=== PATIENT | female | born 1985 | race Caucasian/White ===

== ENCOUNTER → 2017-12-01 10:07 | Outpatient (CLI) | payer OTHER, SELFPAY ==
--- NOTE | 2017-12-01 | DI.US.S_ITS ---
PROCEDURE: US OB <= 14 WEEKS FETUS INDICATIONS: ABDOMINAL PAIN OUTSIDE/PRIOR DATING DATA: Last menstrual period (LMP): 10/11/17. LMP-based estimated date of delivery (ANUJA): 07/18/18. First dating scan (date and location): 12/01/17. Estimated date of delivery (ANUJA) from first dating scan: 07/19/18. TECHNIQUE: Real-time scanning was performed of the fetus and maternal pelvic organs, with image documentation. Endovaginal scanning was also performed to better visualize the fetus and maternal ovaries. COMPARISON: None. FINDINGS: Embryo: Hurricane-rump length measures 1.0 cm corresponding to 7 weeks 1 day. heart rate measured 152 beats per minute. Measurement variability in dating: +/- 4 weeks by LMP, +/- 7 days by mean sac diameter (use before 6 weeks gestation if crown-rump length not able to be measured), +/- 5 days by crown-rump length (up to 8 weeks 6 days gestation), +/- 7 days by crown-rump length (up to 13 weeks 6 days gestation). Maternal organs: Large simple maternal left ovarian cyst measuring 7.0 x 7.9 x 5.7 cm. IMPRESSION: 1. 7 week 1 day single living IUP. 2. Large simple maternal left ovarian cyst. Given the size, there is increased risk for spontaneous ovarian torsion and followup is recommended. Dictated by: Juwan PATRICK Interpreted: Rc Le MD on 12/01/2017 at 14:38 Approved by: Rc Le M.D. on 12/01/2017 at 15:20
== END ==
PROVIDERS: PCP Family Medicine; Visit Provider Family Medicine
DX: O34.81 Maternal care for other abnormalities of pelvic organs, first trimester (principal); N83.292 Other ovarian cyst, left side; Z3A.01 Less than 8 weeks gestation of pregnancy
CPT/HCPCS: 76801; 76817

== ENCOUNTER → 2018-03-10 08:12 | Outpatient (CLI) | payer OTHER, SELFPAY ==
--- NOTE | 2018-03-10 | DI.US.S_ITS ---
PROCEDURE: US OB >= 14 WEEKS FETUS INDICATIONS: SCREENING OUTSIDE/PRIOR DATING DATA: Last menstrual period (LMP): 10/11/2017. LMP-based estimated date of delivery (ANUJA): 07/18/2018. First dating scan (date and location): 12/01/2017. Estimated date of delivery (ANUJA) from first dating scan: 07/19/2018. TECHNIQUE: Real-time scanning was performed of the fetus, with image documentation and biometric measurements. Endovaginal scanning: There is a small retrochorionic fluid collection inferior to the left side of the placenta measuring 4.1 x 0.9 x 3.8 cm COMPARISON: None. FINDINGS: General: A single living intrauterine gestation is present. Presentation: Breech Placenta: Placental position is anterior, without previa. Amniotic fluid index: 18.6 cm, normal range is 5-24 cm. heart rate: 140 beats per minute. Maternal cervical canal: 3.5 cm long. Normal lower limit is 2.5 cm. biometrics: Biparietal diameter: 5.6 cm corresponding with 23 weeks and 0 days Head circumference: 20 cm corresponding with 22 weeks and 1 day Abdominal circumference: 17.2 cm corresponding with 22 weeks and 1 day Femur length: 3.8 cm corresponding with 22 weeks and 2 day Estimated gestational age from initial scan: not applicable. Composite gestational age from present scan: 21 weeks and 2 days Estimated weight and percentile: 485 g corresponding to the 89th percentile Measurement variability for biometric dating: +/- 7 days from 14 weeks to 15 weeks 6 days gestation, +/- 10 days from 16 weeks to 21 weeks 6 days gestation, +/- 2 weeks from 22 weeks to 27 weeks 6 days gestation, +/- 3 weeks for 28 weeks gestation or later. weight reference: 4500 g or EFW >90/95% is considered macrosomia or large for gestational age. EFW <10% is small for gestational age. EFW 5% or less is considered intra-uterine growth restriction. Anatomic survey: Neuro: Ventricles are non-dilated at less than 10 mm. Cisterna magna is normal at 3-11 mm. Cerebellum is normal in size and morphology. Nuchal skin fold: Normal at less than 6 mm between 14-21 weeks gestational age. Face: Nose and lips, facial profile are normal. Spine: No evidence for spina bifida. Heart: 4-chambered heart is present, with normal ventricular outflow tracts. Diaphragm: Diaphragm is intact. Stomach: Left-sided stomach is present. Kidneys: No hydronephrosis. Normal is less than 5 mm in 2nd trimester, less than 7 mm in 3rd trimester. Cord: 3-vessel cord has orthotopic insertion. Bladder: Normal in size. Extremities: All 4 extremities identified. IMPRESSION: 1. Single living intrauterine gestation with an estimated sonographic gestational age of approximately 21 weeks and 2 days. 2. Unremarkable routine anatomic survey. 3. Nonspecific, small 4.1 x 0.9 x 3.8 cm ashwin-chorionic fluid collection seen inferior to left side of the placenta which may represent a previous perigestational hemorrhage. Clinical followup as needed. Dictated by: Kamar David M.D. on 03/10/2018 at 15:27 Approved by: Kamar David M.D. on 03/10/2018 at 15:51
== END ==
PROVIDERS: PCP Family Medicine; Visit Provider Family Medicine
DX: Z36.89 Encounter for other specified antenatal screening (principal); Z3A.21 21 weeks gestation of pregnancy
CPT/HCPCS: 76811

== ENCOUNTER → 2018-03-22 15:55 | Outpatient (CLI) | payer OTHER, SELFPAY ==
--- NOTE | 2018-03-22 | DI.US.S_ITS ---
PROCEDURE: US OB LIMITED INDICATIONS: FOLLOW UP PERIGESTATIONAL HEMORRHAGE OUTSIDE/PRIOR DATING DATA: Last menstrual period (LMP): 10/11/2017. LMP-based estimated date of delivery (ANUJA): 07/18/2018. First dating scan (date and location): 12/01/2017. Estimated date of delivery (ANUJA) from first dating scan: 07/19/2018. TECHNIQUE: Real-time scanning was performed of the fetus, with image documentation and biometric measurements. Endovaginal scanning: No COMPARISON: [facility], , OB >= 14 WEEKS FETUS, 03/10/2018, 8:42. FINDINGS: General: A single living intrauterine gestation is present. Presentation: Transverse. Placenta: Placental position is anterior, without previa. Subchorionic inferior placental fluid collection again seen which appear similar to prior examination and likely represents a prominent venous ibanez measuring 4.9 x 1.4 x 3.4 cm. Amniotic fluid index: 17.8 cm, normal range is 5-24 cm. heart rate: 144 beats per minute. Maternal cervical canal: Not well-seen. Other: Not applicable. IMPRESSION: 1. Single living IUP redemonstrated and subchorionic inferior fluid collection is again noted which has an appearance suggesting probable prominent venous ibanez. Recommend clinical correlation and continued followup. Dictated by: Juwan CONN Interpreted: Melanie Wilson MD on 03/22/2018 at 16:43 Approved by: Melanie Wilson M.D. on 03/22/2018 at 21:09
== END ==
PROVIDERS: PCP Family Medicine; Visit Provider Family Medicine
DX: O46.92 Antepartum hemorrhage, unspecified, second trimester (principal); Z3A.22 22 weeks gestation of pregnancy
CPT/HCPCS: 76815

== ENCOUNTER 2018-05-10 13:00 | Observation (INO) | payer OTHER, SELFPAY | END 2018-05-10 15:30 | disposition home or self-care (01) | PROVIDERS: Admitting Provider Family Medicine; PCP Family Medicine; Visit Provider Family Medicine | DX: Z34.83 Encounter for supervision of other normal pregnancy, third trimester (principal); Z3A.30 30 weeks gestation of pregnancy | CPT/HCPCS: 59025; 96360; G0378; G0379 ==

== ENCOUNTER → 2018-06-20 14:24 | Outpatient (REF) | payer OTHER, SELFPAY | LOC: LAB 14:24 | PROVIDERS: PCP Family Medicine; Visit Provider Family Medicine | DX: Z34.80 Encounter for supervision of other normal pregnancy, unspecified trimester (principal) | CPT/HCPCS: 87081 ==

== ENCOUNTER 2018-07-11 09:50 | Observation (INO) | payer OTHER, SELFPAY ==
--- NOTE | 2018-07-11 09:55 | DI.US.S_ITS ---
PROCEDURE: US OB >= 14 WEEKS FETUS INDICATIONS: SIZE AND MARICRUZ OUTSIDE/PRIOR DATING DATA: Last menstrual period (LMP): 10/11/17. LMP-based estimated date of delivery (ANUJA): 07/18/18. First dating scan (date and location): 12/01/17. Estimated date of delivery (ANUJA) from first dating scan: 07/19/18. TECHNIQUE: Real-time scanning was performed of the fetus, with image documentation and biometric measurements. COMPARISON: [facility], OB LIMITED, 03/22/2018, 16:20. [facility] PELVIC COMPLETE, 01/24/2018, 12:47. [facility] PELVIC COMPLETE, 12/26/2017, 14:58. [facility] 14 WEEKS [facility]US, 12/01/2017, 10:37. [facility] >= 14 WEEKS FETUS, 03/10/2018, 8:42. FINDINGS: General: A single living intrauterine gestation is present. Presentation: Vertex. Placenta: Placental position is anterior, without previa. Amniotic fluid index: 16.1 cm, normal range is 5-24 cm. heart rate: 155 beats per minute. Maternal cervical canal: Not well-seen. biometrics: Biparietal diameter: 10.4 cm (out of range) Head circumference: 34.9 cm (40 weeks 4 days) Abdominal circumference: 35.8 cm (39 weeks 5 days) Femur length: 7.8 cm, (40 weeks 1 day) Estimated gestational age from initial scan: 38 weeks 6 days Composite gestational age from present scan: 40 weeks 1 day Estimated weight and percentile: 4050 g (93rd percentile) Measurement variability for biometric dating: +/- 7 days from 14 weeks to 15 weeks 6 days gestation, +/- 10 days from 16 weeks to 21 weeks 6 days gestation, +/- 2 weeks from 22 weeks to 27 weeks 6 days gestation, +/- 3 weeks for 28 weeks gestation or later. weight reference: 4500 g or EFW >90/95% is considered macrosomia or large for gestational age. EFW <10% is small for gestational age. EFW 5% or less is considered intra-uterine growth restriction. IMPRESSION: 1. Single live intrauterine is measuring slightly larger than expected based on the previous ultrasound. 2. Estimated weight is within the 93rd percentile. Please correlate clinically for possible macrosomia. Dictated by: Lowell Orantes M.D. on 07/11/2018 at 11:28 Approved by: Lowell Orantes M.D. on 07/12/2018 at 12:43
[2018-07-11 10:16] LABS: RBC Urine None Seen (0-5/HPF)
[2018-07-11 10:21] LABS: Appearance Urine UA CLEAR; Bilirubin Urine UA NEGATIVE (NEGATIVE); Color Urine UA YELLOW; Glucose Urine UA NEGATIVE (Negative); Ketones Urine UA NEGATIVE (NEGATIVE); Leukocyte Esterase Urine UA 1+ (NEGATIVE); Nitrite Urine UA NEGATIVE (Negative); Occult Blood Urine UA NEGATIVE (Negative); Protein Urine UA NEGATIVE (Negative); Urobilinogen Urine UA 0.2 E.U./dL (0.2)
[2018-07-11 10:21] LABS: Add Manual Diff / Slide Review NO; Basophils Absolute Auto 0 /uL (0-100); Basophils Percent Auto 0.5 % (0-2); Eosinophils Absolute Auto 0 /uL (0-450); Eosinophils Percent Auto 0.5 % (2-4); Hematocrit 38.6 % (36-46); Hemoglobin 13.5 g/dL (12.0-16.0); Lymphocytes Absolute Auto 800 /uL (1100-4500); Lymphocytes Percent Auto 10.8 % (25-40); Mean Corpuscular HGB Conc 35.1 % (30-36); Mean Corpuscular Hemoglobin 31.6 PG (26-34); Mean Corpuscular Volume 90.1 fL (80-100); Monocytes Absolute Auto 400 /uL (0-900); Neutrophils Absolute Auto 6000 /uL (1500-7000); Neutrophils Percent Auto 82.2 % (50-75); Platelet Count 167 X10^3/uL (150-400); Red Blood Cell Count 4.28 X10^6/uL (4.0-5.2); Red Cell Distribution Width 12.8 % (11.6-14.8); White Blood Cell Count 7.3 X10^3/uL (4.5-11.0)
[2018-07-11 10:33] LABS: Aspartate Aminotransferase 20 IU/L (14-36); Blood Urea Nitrogen 10 mg/dL (7-17); Estimated Glomerular Filt Rate > 60.0 mL/min (>60); Uric Acid 3.8 mg/dL (2.5-6.2)
[2018-07-11 10:41] LABS: Bacteria Urine Occasional (0-1); Squamous Epithelial Cell Urine 5-10 /HPF (0-5/HPF); WBC Urine 1-5/HPF (0-5/HPF)
== END 2018-07-11 12:15 | disposition home or self-care (01) ==
PROVIDERS: Admitting Provider Family Medicine; PCP Family Medicine; Visit Provider Family Medicine
DX: O24.419 Gestational diabetes mellitus in pregnancy, unspecified control (principal); Z3A.39 39 weeks gestation of pregnancy
CPT/HCPCS: 36415; 59025; 59050; 76811; 81001; 84450; 84550; 85025; G0378; G0379

== ENCOUNTER 2018-07-16 18:06 | Inpatient (IN) | payer OTHER, SELFPAY ==
[2018-07-16] MEDS: miSOPROStol 25 MCG TABLET VAG ×2 (19:30→23:33)
[2018-07-16 21:52] VITALS: BP 140/87
[2018-07-17 03:52] LABS: Add Manual Diff / Slide Review NO; Basophils Absolute Auto 100 /uL (0-100); Basophils Percent Auto 0.7 % (0-2); Eosinophils Absolute Auto 100 /uL (0-450); Eosinophils Percent Auto 1.4 % (2-4); Hematocrit 38.9 % (36-46); Hemoglobin 13.9 g/dL (12.0-16.0); Lymphocytes Absolute Auto 1200 /uL (1100-4500); Mean Corpuscular HGB Conc 35.8 % (30-36); Mean Corpuscular Hemoglobin 32.1 PG (26-34); Mean Corpuscular Volume 89.7 fL (80-100); Monocytes Absolute Auto 600 /uL (0-900); Monocytes Percent Auto 7.1 % (3-14); Neutrophils Absolute Auto 6800 /uL (1500-7000); Neutrophils Percent Auto 76.8 % (50-75); Platelet Count 190 X10^3/uL (150-400); Red Blood Cell Count 4.34 X10^6/uL (4.0-5.2); Red Cell Distribution Width 12.6 % (11.6-14.8); White Blood Cell Count 8.9 X10^3/uL (4.5-11.0)
[2018-07-17] MEDS: LACTATED RINGERS 1,000 ML 100 ML IV ×2 (04:34→06:58)
[2018-07-17] MEDS: OXYTOCIN PREMIX 30 UNIT/500 ML PLAST..BAG IV (06:38)
[2018-07-17 07:03] VITALS: BP 116/76; PULSE 83; RESP 16; TEMP 36.3
--- NOTE | 2018-07-17 08:23 | PM.OBPNLAB ---
Date/Time Date Patient Seen: 07/17/18 Time Patient Seen: 08:24 Pain Control Pain control: tolerating well and epidural Pelvic Exam Dilation (cm): 4 Effacement (%): 100 station: 0 Amniotic membrane status: Intact Contractions Contractions on admission: irregular Monitor mode: External Pitocin rate (mU/min): 4 Contraction frequency (min): 4 Contraction pattern: Irregular Contraction phase: Resting Contraction intensity: Strong/Firm Status status: Category l Heart Rate Baseline: 130 Monitor Accelerations: Present Monitor Decelerations: Absent Monitor Variability: Moderate Assessment and Plan Assessment: active labor Plan: continuous present management Comments: AROM clear continue with epidural and pitocin
[2018-07-17] MEDS: OXYTOCIN 10 UNIT/ML VIAL IM (11:15)
--- NOTE | 2018-07-17 11:49 | P.PCNOB_ITS ---
Delivery date: 07/17/18 Intrapartal events: None Cervical ripening method: per misoprostal protocol Induction method: per pitocin protocol Delivery augmentation: rupture of membranes Delivery monitor: external FHT Route of delivery: L&D Laceration Description: None Estimated blood loss (mL): 300 Anesthesia type: Epidural Complications: none Narrative: Identifyingdata: This is a pleasant 32-year-old at 39 and 6 7 weeks estimated gestational age who is brought in for cervical ripening due to elective reasons due to 's deployment. Patient also having elevated blood pressures which was thought to be related to anxiety. She did not have the normal blood pressure dropped during . Preeclamptic labs were negative. Otherwise was uncomplicated. AB-positive mom rubella immune, GBS negative, status post flu and Tdap Stage I: 6 hours and 50 minutes Patient was given Cytotec for cervical ripening x2. She had painful uterine contractions that caused cervical change and was felt to be in active labor at 3:30 a.m. on the day of delivery. She requested an epidural and completed at 5:30 a.m.. The patient was felt to be comfortable. The patient was 4-5 cm at the time that I initially checked her at 8:00 a.m. and artificial rupture membranes was performed at 8:12 a.m.. This resulted in clear and blood-tinged fluid. This was 2 hours and 55 minutes prior to delivery. Patient was noted to be complete at 10:20 a.m. and began pushing at 10:33 a.m.. External tocometer and heart monitor were used throughout stage I. Baseline heart rate was in the 130s to 140s with moderate variability and accelerations. There were ashwin ods of decreased variability but category 1 tracing throughout this stage. There were no complication shins of stage I of labor. After the epidural the uterine contractions spaced out and Pitocin was begun at approximately 6:45 a.m.. Maximum Pitocin was 8 milliunits Stage II: 34 minutes Patient began pushing and had very effective pushing. She allowed the head to sit on the perineum and effectively stretch. External tocometer heart monitor used throughout this stage showing increased in variability than prior to pushing. Showing moderate variability with variable decelerations into the 100s with pushing. Uterine contractions were every 2-4 minutes. Maximum Pitocin was at 8 milliunits. Baby was in LOUIS presentation. The head was delivered without difficulty and palpated for a cord which was not present and then anterior shoulder was delivered without difficulty and then posterior shoulder. Some difficulty getting the torso delivered. Baby was placed on mom's chest. Cord was allowed pulse a for 30 seconds and then clamped x2 and cut by father. Baby was vigorous at delivery on mom's chest. Stage III: Lasted 6 minutes Normal spontaneous vaginal delivery of an intact moderately calcified placenta with central cord insertion almost elongated placenta. No evidence of abruption or venous Baker. Three-vessel cord present. Perineum was intact as was vagina and cervix. Uterus was very deep and initially boggy so 10 milliunits of Pitocin was given IM and the remainder of the Pitocin that was titrated for induction was run in. No repairs were necessary. At the time of this dictation both mom and baby are in stable condition. Baby's weight is pending. Suspect 9 lb. Apgars 9 at 1 minute and 9 at 5 minutes Plan for aftercare: routine GBS negative AB positive, rubella immune
--- NOTE | 2018-07-17 11:49 | PM.OBHP.1 ---
OB HPI Date/Time Date of admission: 07/17/18 Date Patient Seen: 07/17/18 Time Patient Seen: 08:00 History of Present Condition Chief complaint: observation : 2 Para: 1 Estimated Date of Delivery: 07/18/18 Estimated Gestational Age (weeks): 39 6/7 Narrative: Cynthia Tristan is a 32 year old female at 39 and 6 7 weeks estimated gestational age based on an EDC of 07/18/2018 based on LMP and 1st trimester ultrasound is brought to Labor and delivery for Cytotec cervical ripening due to elective reasons due to in deployment, a suspected macrosomia and elevated blood pressure. Blood pressure was thought to be related to anxiety although her blood pressure did not decrease with . She had preeclamptic labs done on 2 separate occasions which were entirely normal. She never had significant swelling or proteinuria. She had her flu shot and tetanus shot. Indications Indication for induction OB: other History of Present care: good care Dating criteria: LMP confirmed by 1st trimester US Ultrasounds: normal 1st trimester US and normal mid trimester US Abnormal ultrasound findings: Venous lakes were found but resolved. Obstetrical complications: none Medical complications: none Preadmission Labs Blood type: AB (+) positive -: Antibody screen: negative, Cystic fibrosis screen: negative, GBS status: negative, HBsAG: negative, HIV: negative, HSV 1: negative, HSV 2: negative and RPR/VDLR: negative -: Chlamydia screen: not detected and Gonorrhea screen: not detected -: Rubella: immune HCT: 13.2 HCAB: negative PAP: Normal Integrated screen: Insurance did not cover Sequential screen: Insurance did not cover Quad screen: Normal Urine: Negative 1 hr GTT: 76 Prior (ies) History: 1. March 03, 2016 at 41 weeks gestation normal spontaneous vaginal delivery of a viable female infant weighing 7 lb 0.8 oz name [place] with epidural at [facility]. Uncomplicated and delivery. Evaluation Evaluation Laboratory results: Laboratory Tests 07/17/18 07/17/18 03:40 03:40 WBC 8.9 RBC 4.34 Hgb 13.9 Hct 38.9 MCV 89.7 MCH 32.1 MCHC 35.8 RDW 12.6 Plt Count 190 Neut % (Auto) 76.8 H Lymph % (Auto) 14.0 L [place] % (Auto) 7.1 Eos % (Auto) 1.4 L Baso % (Auto) 0.7 Neut # (Auto) 6800 Lymph # (Auto) 1200 [place] # (Auto) 600 Eos # (Auto) 100 Baso # (Auto) 100 Blood Type AB Positive Antibody Screen Negative [facility] Social History Smoking Status: Never smoker Social History Smoking Status: Never smoker Comment: Past medical history 1. Hypothyroidism Medications: vitamins Levothyroxine 50 mcg daily Site amount 25 mcg daily Allergies: No known drug allergies Past surgical history: Unremarkable Health related behavior: No smoking, no alcohol or drug use Family history: Mom with hypertension, diagnosed at age 40 Social history: The patient is and lives in [facility]. Her is in the . 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 Has a 2-year-old daughter. Meds Home Medications Medication Instructions Recorded Confirmed Type levothyroxine 50 mcg tablet 50 mcg PO DAILY 12/26/17 07/16/18 History liothyronine 25 mcg tablet 25 mcg PO DAILY 12/26/17 07/16/18 History Allergies Allergy/AdvReac Type Severity Reaction Status Date / Time No Known Drug Allergies Allergy Verified 07/16/18 21:55 Review of Systems Review of Systems Negative for any contractions. Negative for headaches or swelling. Baby has been active. Negative for any bleeding or leaking fluid. Negative for any swelling. Negative for change in metal discharge. Negative for visual changes All systems reviewed & are unremarkable except as noted in HPI and below Exam Vital Signs (past 8 hours): Afebrile, vital signs are stable HEENT: Unremarkable Neck: Supple without adenopathy or thyromegaly Chest: Clear to auscultation without wheezes rhonchi or crackles Cor: Regular rate and rhythm without any murmur Abdomen: Gravid, vertex, estimated weight approximately 9 lb. No hepatosplenomegaly. No tenderness. Extremities no edema, pulses intact, DTRs 2+ Cervical exam 4-5 cm dilated, 100% effaced, 0 station, intact bag of water A rum at 8:12 a.m. clear fluid with some blood Uterine contractions every 2-4 minutes. Some coupling. Category 1 tracing with baseline 130s to 140s with moderate variability and accelerations and no decelerations Objective Labs Result Diagrams: 07/17/18 03:40 Labs: Laboratory Results - last 24 hr 07/17/18 07/17/18 03:40 03:40 WBC 8.9 RBC 4.34 Hgb 13.9 Hct 38.9 MCV 89.7 MCH 32.1 MCHC 35.8 RDW 12.6 Plt Count 190 Neut % (Auto) 76.8 H Lymph % (Auto) 14.0 L [place] % (Auto) 7.1 Eos % (Auto) 1.4 L Baso % (Auto) 0.7 Neut # (Auto) 6800 Lymph # (Auto) 1200 [place] # (Auto) 600 Eos # (Auto) 100 Baso # (Auto) 100 Blood Type AB Positive Antibody Screen Negative Assessment and Plan Assessment and Plan Assessment and Plan narrative: 32-year-old at 39 and 6 7 weeks estimated gestational age in early active labor with epidural and reassuring heart tracing with category 1 tracing. AROM performed Continue with Pitocin Continue with epidural Expectant management AB positive, rubella immune, GBS negative
--- NOTE | 2018-07-17 12:01 | P.HPOB_ITS ---
OB HPI Date/Time Date of admission: 07/17/18 Date Patient Seen: 07/17/18 Time Patient Seen: 08:00 History of Present Condition Chief complaint: observation : 2 Para: 1 Estimated Date of Delivery: 07/18/18 Estimated Gestational Age (weeks): 39 6/7 Narrative: Cynthia Tristan is a 32 year old female at 39 and 6 7 weeks estimated gestational age based on an EDC of 07/18/2018 based on LMP and 1st trimester ultrasound is brought to Labor and delivery for Cytotec cervical ripening due to elective reasons due to in deployment, a suspected macrosomia and elevated blood pressure. Blood pressure was thought to be related to anxiety although her blood pressure did not decrease with . She had preeclamptic labs done on 2 separate occasions which were entirely normal. She never had significant swelling or proteinuria. She had her flu shot and tetanus shot. Indications Indication for induction OB: other History of Present care: good care Dating criteria: LMP confirmed by 1st trimester US Ultrasounds: normal 1st trimester US and normal mid trimester US Abnormal ultrasound findings: Venous lakes were found but resolved. Obstetrical complications: none Medical complications: none Preadmission Labs Blood type: AB (+) positive -: Antibody screen: negative, Cystic fibrosis screen: negative, GBS status: negative, HBsAG: negative, HIV: negative, HSV 1: negative, HSV 2: negative and RPR/VDLR: negative -: Chlamydia screen: not detected and Gonorrhea screen: not detected -: Rubella: immune HCT: 13.2 HCAB: negative PAP: Normal Integrated screen: Insurance did not cover Sequential screen: Insurance did not cover Quad screen: Normal Urine: Negative 1 hr GTT: 76 Prior (ies) History: 1. March 03, 2016 at 41 weeks gestation normal spontaneous vaginal delivery of a viable female infant weighing 7 lb 0.8 oz name [place] with epidural at [facility]. Uncomplicated and delivery. Evaluation Evaluation Laboratory results: Laboratory Tests 07/17/18 07/17/18 03:40 03:40 WBC 8.9 RBC 4.34 Hgb 13.9 Hct 38.9 MCV 89.7 MCH 32.1 MCHC 35.8 RDW 12.6 Plt Count 190 Neut % (Auto) 76.8 H Lymph % (Auto) 14.0 L [place] % (Auto) 7.1 Eos % (Auto) 1.4 L Baso % (Auto) 0.7 Neut # (Auto) 6800 Lymph # (Auto) 1200 [place] # (Auto) 600 Eos # (Auto) 100 Baso # (Auto) 100 Blood Type AB Positive Antibody Screen Negative [facility] Social History Smoking Status: Never smoker Social History Smoking Status: Never smoker Comment: Past medical history 1. Hypothyroidism Medications: vitamins Levothyroxine 50 mcg daily Site amount 25 mcg daily Allergies: No known drug allergies Past surgical history: Unremarkable Health related behavior: No smoking, no alcohol or drug use Family history: Mom with hypertension, diagnosed at age 40 Social history: The patient is and lives in [facility]. Her is in the . 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 Meds Home Medications Medication Instructions Recorded Confirmed Type levothyroxine 50 mcg tablet 50 mcg PO DAILY 12/26/17 07/16/18 History liothyronine 25 mcg tablet 25 mcg PO DAILY 12/26/17 07/16/18 History Allergies Allergy/AdvReac Type Severity Reaction Status Date / Time No Known Drug Allergies Allergy Verified 07/16/18 21:55 Review of Systems Review of Systems Negative for any contractions. Negative for headaches or swelling. Baby has been active. Negative for any bleeding or leaking fluid. Negative for any swelling. Negative for change in metal discharge. Negative for visual changes All systems reviewed & are unremarkable except as noted in HPI and below Exam Vital Signs (past 8 hours): Afebrile, vital signs are stable HEENT: Unremarkable Neck: Supple without adenopathy or thyromegaly Chest: Clear to auscultation without wheezes rhonchi or crackles Cor: Regular rate and rhythm without any murmur Abdomen: Gravid, vertex, estimated weight approximately 9 lb. No hepatosplenomegaly. No tenderness. Extremities no edema, pulses intact, DTRs 2+ Cervical exam 4-5 cm dilated, 100% effaced, 0 station, intact bag of water A rum at 8:12 a.m. clear fluid with some blood Uterine contractions every 2-4 minutes. Some coupling. Category 1 tracing with baseline 130s to 140s with moderate variability and accelerations and no decelerations Objective Labs Result Diagrams: 07/17/18 03:40 Labs: Laboratory Results - last 24 hr 07/17/18 07/17/18 03:40 03:40 WBC 8.9 RBC 4.34 Hgb 13.9 Hct 38.9 MCV 89.7 MCH 32.1 MCHC 35.8 RDW 12.6 Plt Count 190 Neut % (Auto) 76.8 H Lymph % (Auto) 14.0 L [place] % (Auto) 7.1 Eos % (Auto) 1.4 L Baso % (Auto) 0.7 Neut # (Auto) 6800 Lymph # (Auto) 1200 [place] # (Auto) 600 Eos # (Auto) 100 Baso # (Auto) 100 Blood Type AB Positive Antibody Screen Negative Assessment and Plan Assessment and Plan Assessment and Plan narrative: 32-year-old at 39 and 6 7 weeks estimated gestational age in early active labor with epidural and reassuring heart tracing with category 1 tracing. AROM performed Continue with Pitocin Continue with epidural Expectant management AB positive, rubella immune, GBS negative
[2018-07-17] MEDS: METHYLERGONOVINE 0.2 MG TABLET PO ×3 (12:52→21:13)
[2018-07-17] MEDS: miSOPROStol 200 MCG TABLET 800 MCG PR (14:15)
[2018-07-17] MEDS: CARBOPROST 250 MCG/ML AMPUL IM (15:29)
[2018-07-17] MEDS: IBUPROFEN 600 MG TABLET PO ×2 (17:04→21:13)
[2018-07-17 18:50] LABS: Add Manual Diff / Slide Review NO; Basophils Absolute Auto 100 /uL (0-100); Basophils Percent Auto 0.4 % (0-2); Eosinophils Absolute Auto 0 /uL (0-450); Hematocrit 29.9 % (36-46); Hemoglobin 10.3 g/dL (12.0-16.0); Lymphocytes Absolute Auto 700 /uL (1100-4500); Lymphocytes Percent Auto 4.4 % (25-40); Mean Corpuscular HGB Conc 34.6 % (30-36); Mean Corpuscular Hemoglobin 31.5 PG (26-34); Mean Corpuscular Volume 91.1 fL (80-100); Monocytes Absolute Auto 500 /uL (0-900); Neutrophils Absolute Auto 13800 /uL (1500-7000); Neutrophils Percent Auto 92.2 % (50-75); Platelet Count 165 X10^3/uL (150-400); Red Blood Cell Count 3.28 X10^6/uL (4.0-5.2); Red Cell Distribution Width 12.8 % (11.6-14.8)
[2018-07-17] MEDS: ACETAMINOPHEN 325 MG TABLET 650 MG PO (20:04)
[2018-07-18] MEDS: METHYLERGONOVINE 0.2 MG TABLET PO ×2 (01:32→05:14)
[2018-07-18] MEDS: ACETAMINOPHEN 325 MG TABLET 650 MG PO ×2 (01:32→07:54)
[2018-07-18] MEDS: IBUPROFEN 600 MG TABLET PO ×2 (05:13→12:55)
[2018-07-18] MEDS: LIOTHYRONINE 5 MCG TABLET 25 MCG PO (06:03)
[2018-07-18] MEDS: LEVOTHYROXINE 50 MCG TABLET PO ×2 (06:03→08:01)
[2018-07-18 06:53] LABS: Add Manual Diff / Slide Review NO; Basophils Absolute Auto 100 /uL (0-100); Basophils Percent Auto 0.5 % (0-2); Eosinophils Absolute Auto 100 /uL (0-450); Eosinophils Percent Auto 0.9 % (2-4); Hemoglobin 9.9 g/dL (12.0-16.0); Lymphocytes Absolute Auto 1100 /uL (1100-4500); Lymphocytes Percent Auto 10.7 % (25-40); Mean Corpuscular HGB Conc 35.3 % (30-36); Mean Corpuscular Hemoglobin 32.2 PG (26-34); Mean Corpuscular Volume 91.2 fL (80-100); Monocytes Absolute Auto 600 /uL (0-900); Monocytes Percent Auto 5.6 % (3-14); Neutrophils Absolute Auto 8600 /uL (1500-7000); Neutrophils Percent Auto 82.3 % (50-75); Platelet Count 154 X10^3/uL (150-400); Red Blood Cell Count 3.07 X10^6/uL (4.0-5.2); Red Cell Distribution Width 12.8 % (11.6-14.8); White Blood Cell Count 10.4 X10^3/uL (4.5-11.0)
[2018-07-18] MEDS: METOCLOPRAMIDE HCL 10 MG TABLET PO ×2 (07:55→11:54)
[2018-07-18] MEDS: DOCUSATE 250 MG CAPSULE PO (11:55)
--- NOTE | 2018-07-18 13:32 | P.DS_ITS ---
History of Present Illness Chief complaint: LABOR & DELIVERY Discharge Providers Date of admission: 07/16/18 18:06 Discharge Date: 07/18/18 Primary care physician: Julia Mishra MD Consults: 07/17/18 11:29 Consult to Registered Nurse Cardiac Telemetry Routine Comment: Discharge provider: Julia Mishra MD Objective Labs Result Diagrams: 07/18/18 06:35 Labs: Laboratory Results - last 24 hr 07/17/18 07/17/18 07/18/18 03:40 18:38 06:35 WBC 15.0 H D 10.4 RBC 3.28 L 3.07 L Hgb 10.3 L 9.9 L Hct 29.9 L 28.0 L MCV 91.1 91.2 MCH 31.5 32.2 MCHC 34.6 35.3 RDW 12.8 12.8 Plt Count 165 154 Neut % (Auto) 92.2 H 82.3 H Lymph % (Auto) 4.4 L 10.7 L [place] % (Auto) 3.0 5.6 Eos % (Auto) 0.0 L 0.9 L Baso % (Auto) 0.4 0.5 Neut # (Auto) 81395 H 8600 H Lymph # (Auto) 700 L 1100 [place] # (Auto) 500 600 Eos # (Auto) 0 100 Baso # (Auto) 100 100 Blood Type AB Positive Antibody Screen Negative Crossmatch See Detail Discharge Plan Discharge Plan Patient Disposition: Home Discharge Med Rec/Prescriptions Prescriptions: New ibuprofen 600 mg Tablet 600 mg PO Q6HR PRN (Reason: Pain, Mild (1-3)) Qty: 60 RF: 0 metoclopramide HCl 10 mg Tablet 10 mg PO ACHS Qty: 20 RF: 0 Continued liothyronine [Cytomel] 25 mcg tablet 25 mcg PO DAILY RF: 0 levothyroxine 50 mcg tablet 50 mcg PO DAILY RF: 0 Follow up/Referrals: Julia Mishra MD [Primary Care Provider] - Provider Discharge Instructions Diet: Diet as Tolerated Activity: pelvic rest no heavy lifting Discharge Data Primary Care Provider: Julia Mishra Attending Provider: Julia Mishra Admit Date/Time: 07/16/18 18:06
--- NOTE | 2018-07-18 13:32 | PM.OBDS.1 ---
Discharge Providers Date of admission: 07/16/18 18:06 Discharge Date: 07/18/18 Primary care physician: Julia Mishra MD Consults: 07/17/18 11:29 Consult to Gift Shop Clerk Routine Comment: Discharge provider: Julia Mishra MD Summary Date Patient Seen: 07/18/18 Time Patient Seen: 13:33 Procedures: 1. Normal spontaneous vaginal delivery 2. Epidural Hospital Course: Patient admitted to the hospital for cervical ripening and received 2 Cytotec and went into active labor. She received an epidural at 5:30 a.m. on date of delivery and had rapid progression and normal spontaneous vaginal delivery on 07/17/2018. Uncomplicated. She did developed hemorrhage. She had large amounts of blood clots and intermittent boggy uterus. Her uterus was quickly contract down and then to continue Reyataz she received 10 mg use IM with Pitocin and then Pitocin was run and intravenously. She then had 1-1/2 hours after delivery had Methergine orally given. And Cytotec 800 mcg per rectum. She then continued to have bleeding and an in out catheterization obtained 250 cc of urine. She then had Hemabate which causes vomiting. Finely approximately 6 hours after delivery her bleeding dissipated. There were no vaginal or cervical lacerations. There were no perineal lacerations. There was no concern for retained placenta. Amniotic membranes came out intact the placenta came out intact and fully visualize it. Patient recovered quickly. She maintained a good blood pressure but at 1 point her heart rate did go up into the 150s. She denies any significant bleeding today. She is having very minimal blood. She is up ambulating without difficulty. She has showered. She is feeding the baby without difficulty. She is urinating and stooling without difficulty. Her pain is well controlled with ibuprofen. Her hemoglobin dropped to 9.9 this morning 10.3 yesterday evening. She maintained normal blood pressure throughout this in the 1 teens to 120s and continues with normal blood pressure and vital signs today. Peripartum Data Delivery Method: Natural Vaginal Laceration description: None complications: none Time Spent with Patient Total time spent providing and/or coordinating discharge services: 30 minutes Objective Labs Result Diagrams: 07/18/18 06:35 Labs: Laboratory Results - last 24 hr 05/20/19 05/20/19 05/21/19 03:40 18:38 06:35 WBC 15.0 H D 10.4 RBC 3.28 L 3.07 L Hgb 10.3 L 9.9 L Hct 29.9 L 28.0 L MCV 91.1 91.2 MCH 31.5 32.2 MCHC 34.6 35.3 RDW 12.8 12.8 Plt Count 165 154 Neut % (Auto) 92.2 H 82.3 H Lymph % (Auto) 4.4 L 10.7 L [place] % (Auto) 3.0 5.6 Eos % (Auto) 0.0 L 0.9 L Baso % (Auto) 0.4 0.5 Neut # (Auto) 56803 H 8600 H Lymph # (Auto) 700 L 1100 [place] # (Auto) 500 600 Eos # (Auto) 0 100 Baso # (Auto) 100 100 Blood Type AB Positive Antibody Screen Negative Crossmatch See Detail Exam Narrative Exam Narrative: Afebrile, vital signs are stable Color is good. She is alert and oriented x3 Neck is supple without adenopathy Chest clear to auscultation without wheezes rhonchi or crackles Cor: Regular rate and rhythm without murmur Abdomen: Positive bowel sounds, soft, nontender, uterus is firm and nontender and well below the umbilicus and not displaced Extremities: Trace edema. DTRs 2+ bilaterally at the patella Perineum with moderate swelling Discharge Plan Discharge Plan Patient Disposition: Home Discharge Med Rec/Prescriptions Prescriptions: New ibuprofen 600 mg Tablet 600 mg PO Q6HR PRN (Reason: Pain, Mild (1-3)) Qty: 60 RF: 0 metoclopramide HCl 10 mg Tablet 10 mg PO ACHS Qty: 20 RF: 0 Continued liothyronine [Cytomel] 25 mcg tablet 25 mcg PO DAILY RF: 0 levothyroxine 50 mcg tablet 50 mcg PO DAILY RF: 0 Follow up/Referrals: Julia Mishra MD [Primary Care Provider] - Discharge Data Primary Care Provider: Julia Mishra Attending Provider: Julia Mishra Admit Date/Time: 07/16/18 18:06
--- NOTE | 2018-07-18 13:38 | P.DS_ITS ---
Discharge Providers Date of admission: 07/16/18 18:06 Discharge Date: 07/18/18 Primary care physician: Julia Mishra MD Consults: 07/17/18 11:29 Consult to Hydraulic Miner Blasting Routine Comment: Discharge provider: Julia Mishra MD Summary Date Patient Seen: 07/18/18 Time Patient Seen: 13:33 Procedures: 1. Normal spontaneous vaginal delivery 2. Epidural Hospital Course: Patient admitted to the hospital for cervical ripening and received 2 Cytotec and went into active labor. She received an epidural at 5:30 a.m. on date of delivery and had rapid progression and normal spontaneous vaginal delivery on 07/17/2018. Uncomplicated. She did developed hemorrhage. She had large amounts of blood clots and intermittent boggy uterus. Her uterus was quickly contract down and then to continue Reyataz she received 10 mg use IM with Pitocin and then Pitocin was run and intravenously. She then had 1-1/2 hours after delivery had Methergine orally given. And Cytotec 800 mcg per r ectum. She then continued to have bleeding and an in out catheterization obtained 250 cc of urine. She then had Hemabate which causes vomiting. Finely approximately 6 hours after delivery her bleeding dissipated. There were no vaginal or cervical lacerations. There were no perineal lacerations. There was no concern for retained placenta. Amniotic membranes came out intact the placenta came out intact and fully visualize it. Patient recovered quickly. She maintained a good blood pressure but at 1 point her heart rate did go up into the 150s. She denies any significant bleeding today. She is having very minimal blood. She is up ambulating without difficulty. She has showered. She is feeding the baby without difficulty. She is urinating and stooling without difficulty. Her pain is well controlled with ibuprofen. Her hemoglobin dropped to 9.9 this morning 10.3 yesterday evening. She maintained normal blood pressure throughout this in the 1 teens to 120s and continues with normal blood pressure and vital signs today. Peripartum Data Infant Delivery Method: Natural Vaginal Laceration description: None complications: none Time Spent with Patient Total time spent providing and/or coordinating discharge services: 30 minutes Objective Labs Result Diagrams: 07/18/18 06:35 Labs: Laboratory Results - last 24 hr 07/17/18 07/17/18 07/18/18 03:40 18:38 06:35 WBC 15.0 H D 10.4 RBC 3.28 L 3.07 L Hgb 10.3 L 9.9 L Hct 29.9 L 28.0 L MCV 91.1 91.2 MCH 31.5 32.2 MCHC 34.6 35.3 RDW 12.8 12.8 Plt Count 165 154 Neut % (Auto) 92.2 H 82.3 H Lymph % (Auto) 4.4 L 10.7 L [place] % (Auto) 3.0 5.6 Eos % (Auto) 0.0 L 0.9 L Baso % (Auto) 0.4 0.5 Neut # (Auto) 97463 H 8600 H Lymph # (Auto) 700 L 1100 [place] # (Auto) 500 600 Eos # (Auto) 0 100 Baso # (Auto) 100 100 Blood Type AB Positive Antibody Screen Negative Crossmatch See Detail Exam Narrative Exam Narrative: Afebrile, vital signs are stable Color is good. She is alert and oriented x3 Neck is supple without adenopathy Chest clear to auscultation without wheezes rhonchi or crackles Cor: Regular rate and rhythm without murmur Abdomen: Positive bowel sounds, soft, nontender, uterus is firm and nontender and well below the umbilicus and not displaced Extremities: Trace edema. DTRs 2+ bilaterally at the patella Perineum with moderate swelling Discharge Plan Discharge Plan Patient Disposition: Home Discharge Med Rec/Prescriptions Prescriptions: New ibuprofen 600 mg Tablet 600 mg PO Q6HR PRN (Reason: Pain, Mild (1-3)) Qty: 60 RF: 0 metoclopramide HCl 10 mg Tablet 10 mg PO ACHS Qty: 20 RF: 0 Continued liothyronine [Cytomel] 25 mcg tablet 25 mcg PO DAILY RF: 0 levothyroxine 50 mcg tablet 50 mcg PO DAILY RF: 0 Follow up/Referrals: Julia Mishra MD [Primary Care Provider] - Discharge Data Primary Care Provider: Julia Mishra Attending Provider: Julia Mishra Admit Date/Time: 07/16/18 18:06
[2018-07-18] MEDS: MEASLES,MUMPS,RUBELLA VACC/PF 0.5 ML VIAL SUBCUT (14:12)
== END 2018-07-18 15:05 | disposition home or self-care (01) | DRG 807 ==
PROVIDERS: Admitting Provider Family Medicine; PCP Family Medicine; Visit Provider Family Medicine
DX: O13.4 Gestational [pregnancy-induced] hypertension without significant proteinuria, complicating childbirth (principal); Z37.0 Single live birth; O72.1 Other immediate postpartum hemorrhage; Z3A.39 39 weeks gestation of pregnancy
CPT/HCPCS: 01967; 36415; 59050; 59200; 85025; 86850; 86900; 86901; G0379; J2590; S0191

== ENCOUNTER 2018-11-24 08:15 | Outpatient (RCR) | payer OTHER, SELFPAY ==
--- NOTE | 2018-10-05 16:10 | PT.OIE ---
Current Diagnoses Separation of muscle (nontraumatic), other site (10/05/18) Stress incontinence (female) (male) (10/05/18) Provider Visit Care Team Role Provider Type Julia Mishra MD Attending Provider Physician Primary Care Provider Specialty: Family Practice Address: [address] [place] [address], [id number] Email: Physical Therapy Initial Evaluation PT-OP-A Visit Information Start: 10/05/18 08:13 Freq: Status: Active Protocol: Document 10/05/18 09:00 AMB (Rec: 10/05/18 15:58 AMB [email or web address]) Out-Patient Physical Therapy Visit Information Visit Information Visit Type Initial Evaluation Visit Start Time 09:00 Visit Stop Time 09:45 Total Visit Minutes 45 Visit Number 1 PT-OP-B Current Condition Start: 10/05/18 08:13 Freq: Status: Active Protocol: Document 10/05/18 09:00 AMB (Rec: 10/05/18 15:58 AMB [email or web address]) Current Condition History of Current Condition Onset Date June 2018 Current Complaints stress urinary incontinence and diastasis recti History of Current Condition Cynthia has 2 children both delivered vaginally without tearing. She noticed leaking with running after the of her first child and ran 2 marathons using pads due to the leaking. The leaking worsened after the second delivery which was about 3 months ago. She did have diastasis recti after the first , which resolved on its own before second . Treatment Goals Patient/Caregiver Goals run marathons again without leaking, get diastasis recti to close Prior Functional Status Baseline Function- ADL's Independent Baseline Function- Mobility Independent Current Functional Impairments (Reported) Functional Limitations- ADL's leaking with exercise, intercourse, urgency Personal Factors Other Personal Factors That May Effect hypothyroid Therapy/Recovery PT-OP-C Subjective Start: 10/05/18 08:13 Freq: Status: Active Protocol: Document 10/05/18 09:00 AMB (Rec: 10/05/18 15:58 AMB [email or web address]) Patient Questionnaires Pelvic Pain and Urgency/Frequency Patient Symptom Scale Pelvic Pain Score 3 PT-OP-I Pelvic Floor Start: 10/05/18 09:51 Freq: Status: Active Protocol: Document 10/05/18 09:00 AMB (Rec: 10/05/18 15:58 AMB [email or web address]) Pelvic Floor Assessment Urine Leakage Size Large Leakage Cause Cough Exercise Lifting Sneeze Urge Voiding Frequency 6 Nocturia 1 Urine Pad Type Maxi Pad Bowel Other Bowel Symptoms difficulty delaying need to defecate Pelvic Clock Pelvic Clock Other tightness at perineum Prolapse Cystocele Grade 1 Perineal Descent Resting Absent Bearing Present SEMG (uV) Baseline 2.3 Quick Contraction 14.2 Stability of Hold Fair SEMG Stability of Rest Good Contraction Ability Voluntary Contraction Weak Voluntary Relaxation Weak Manual Muscle Testing Left 0 Manual Muscle Testing Right 0 Manual Muscle Testing Anterior 0 Manual Muscle Testing Posterior 1 Comments Pelvic Floor Comments 1 finger width seperation above and below umbilicus PT-OP-T Assessment and Plan Start: 10/05/18 08:13 Freq: Status: Active Protocol: Document 10/05/18 09:00 AMB (Rec: 10/05/18 16:10 AMB [email or web address]) Physical Therapy Assessment Rehab Potential Rehabilitation Potential Good Evaluation Complexity Number of Personal Factors/Comorbidities 1-2 Number of Body Systems Impaired 1-2 Clinical Presentation at Evaluation Stable Impairments Impairments Functional Activities Strength Goals Two Impairment abdominal stability Short Term Goal (STG) Cynthia will perform a crunch without coning to show improved core stability. STG Duration 4 weeks Combination Window Installer Goal (LTG) Cynthia will have a half finger width diastasis or less. LTG Duration 10 weeks One Impairment continence Short Term Goal (STG) Cynthia will perform a pelvic floor contraction for 10 seconds in standing without compensation. STG Duration 5 weeks Combination Window Installer Goal (LTG) Cynthia will run for 10 minutes without leaking. LTG Duration 10 weeks Assessment Summary Assessment Cynthia attends physical therapy with diastasis recti and stress urinary incontinence that limit her abilty to return to physical activities. She will benefit from both pelvic floor strengthening and then transversus abdominus strengthening for safe return to her previously high level of function. Physical Therapy Plan Frequency and Duration Frequency of Treatment 1x/Week Duration of Treatment 10 weeks Plan of Care Start Date 10/05/18 Plan of Care End Date 12/07/18 Therapeutic Interventions Therapeutic Interventions Aquatic Therapy Gait Training Home Exercise Program Manual Therapy Neuromuscular Re-education Self-Care/Home Management Therapeutic Activities Therapeutic Exercises Modalities Biofeedback Electric Stimulation Next Visit Focus/Plan Next Note Type Treatment Note Next Visit Plan Progress with sEMG and gentle TA stabilization. Pt feels better able to contract PF in seated.
--- NOTE | 2018-10-05 16:10 | PT.OPPOC ---
Current Diagnoses Separation of muscle (nontraumatic), other site (10/05/18) Stress incontinence (female) (male) (10/05/18) Provider Visit Care Team Role Provider Type Julia Mishra MD Attending Provider Physician Primary Care Provider Specialty: Family Practice Address: [address] [place] [address], [id number] Email: Plan Of Care PT-OP-T Assessment and Plan Start: 10/05/18 08:13 Freq: Status: Active Protocol: Document 10/05/18 09:00 AMB (Rec: 10/05/18 16:10 AMB [email or web address]) Physical Therapy Assessment Rehab Potential Rehabilitation Potential Good Evaluation Complexity Number of Personal Factors/Comorbidities 1-2 Number of Body Systems Impaired 1-2 Clinical Presentation at Evaluation Stable Impairments Impairments Functional Activities Strength Goals Two Impairment abdominal stability Short Term Goal (STG) Cynthia will perform a crunch without coning to show improved core stability. STG Duration 4 weeks [facility] Goal (LTG) Cynthia will have a half finger width diastasis or less. LTG Duration 10 weeks One Impairment continence Short Term Goal (STG) Cynthia will perform a pelvic floor contraction for 10 seconds in standing without compensation. STG Duration 5 weeks Aircraft Structural Fitter Goal (LTG) Cynthia will run for 10 minutes without leaking. LTG Duration 10 weeks Assessment Summary Assessment Cynthia attends physical therapy with diastasis recti and stress urinary incontinence that limit her abilty to return to physical activities. She will benefit from both pelvic floor strengthening and then transversus abdominus strengthening for safe return to her previously high level of function. Physical Therapy Plan Frequency and Duration Frequency of Treatment 1x/Week Duration of Treatment 10 weeks Plan of Care Start Date 10/05/18 Plan of Care End Date 12/07/18 Therapeutic Interventions Therapeutic Interventions Aquatic Therapy Gait Training Home Exercise Program Manual Therapy Neuromuscular Re-education Self-Care/Home Management Therapeutic Activities Therapeutic Exercises Modalities Biofeedback Electric Stimulation Next Visit Focus/Plan Next Note Type Treatment Note Next Visit Plan Progress with sEMG and gentle TA stabilization. Pt feels better able to contract PF in seated. Plan of Care Dates Plan of Care Start Date 10/05/18 Plan of Care End Date 12/07/18 Please Sign and Return: I have reviewed this Plan of Care and certify that the skilled therapy services above are required to meet the patient?s needs. Physician Signature Date Printed Name and Credentials Clinical Instructor Signature Printed Name and Credentials
--- NOTE | 2018-10-09 15:54 | PT.OTN ---
Current Diagnoses Separation of muscle (nontraumatic), other site (10/09/18) Stress incontinence (female) (male) (10/09/18) Physical Therapy Treatment Note PT-OP-A Visit Information Start: 10/05/18 08:13 Freq: Status: Active Protocol: Document 10/09/18 09:45 AMB (Rec: 10/09/18 16:07 AMB [email or web address]) Out-Patient Physical Therapy Visit Information Visit Information Visit Type Treatment Note Visit Start Time 09:45 Visit Stop Time 10:30 Total Visit Minutes 45 Visit Number 2 PT-OP-B Current Condition Start: 10/05/18 08:13 Freq: Status: Active Protocol: Document 10/05/18 09:00 AMB (Rec: 10/05/18 15:58 AMB [email or web address]) Current Condition History of Current Condition Onset Date June 2018 Current Complaints stress urinary incontinence and diastasis recti History of Current Condition Cynthia has 2 children both delivered vaginally without tearing. She noticed leaking with running after the of her first child and ran 2 marathons using pads due to the leaking. The leaking worsened after the second delivery which was about 3 months ago. She did have diastasis recti after the first , which resolved on its own before second . Treatment Goals Patient/Caregiver Goals run marathons again without leaking, get diastasis recti to close Prior Functional Status Baseline Function- ADL's Independent Baseline Function- Mobility Independent Current Functional Impairments (Reported) Functional Limitations- ADL's leaking with exercise, intercourse, urgency Personal Factors Other Personal Factors That May Effect hypothyroid Therapy/Recovery PT-OP-C Subjective Start: 10/05/18 08:13 Freq: Status: Active Protocol: Document 10/09/18 09:45 AMB (Rec: 10/09/18 16:08 AMB [email or web address]) OP-PT Subjective Patient Comments Patient Comments Pt is reporting better able to contract pelvic floor, hasn't tried running, thinking of using stationary bike. PT-OP-I Pelvic Floor Start: 10/05/18 09:51 Freq: Status: Active Protocol: Document 10/05/18 09:00 AMB (Rec: 10/05/18 15:58 AMB [email or web address]) Pelvic Floor Assessment Urine Leakage Size Large Leakage Cause Cough Exercise Lifting Sneeze Urge Voiding Frequency 6 Nocturia 1 Urine Pad Type Maxi Pad Bowel Other Bowel Symptoms difficulty delaying need to defecate Pelvic Clock Pelvic Clock Other tightness at perineum Prolapse Cystocele Grade 1 Perineal Descent Resting Absent Bearing Present SEMG (uV) Baseline 2.3 Quick Contraction 14.2 Stability of Hold Fair SEMG Stability of Rest Good Contraction Ability Voluntary Contraction Weak Voluntary Relaxation Weak Manual Muscle Testing Left 0 Manual Muscle Testing Right 0 Manual Muscle Testing Anterior 0 Manual Muscle Testing Posterior 1 Comments Pelvic Floor Comments 1 finger width seperation above and below umbilicus PT-OP-Q Treatments Start: 10/05/18 08:13 Freq: Status: Active Protocol: Document 10/09/18 09:45 AMB (Rec: 10/12/18 15:54 AMB [email or web address]) Therapeutic Exercises Supine Exercises 2 Supine Exercise Name supine april Comments wiht pelvic floor and TrA 1 Supine Exercise Name roll in roll out Resistance #2 tband Comments with gentle TrA Sitting Exercises 1 Sitting Exercise Name quick flicks and long holds Other Exercises 1 Other Exercise Name quadruped pelvic floor contract Comments challenging Neuro Re-Education Treatment Other Activities 1 Details sEMG Comments quick flicks and long holds in hooklying PT-OP-T Assessment and Plan Start: 10/05/18 08:13 Freq: Status: Active Protocol: Document 10/09/18 09:45 AMB (Rec: 10/09/18 16:07 AMB [email or web address]) Physical Therapy Assessment Assessment Summary Assessment Quadruped was difficult to contract pelvic floor, but hooklying and seated work well . Pt given ok to do squats, lunges, biking, but avoid sit ups, running, planks for now. Physical Therapy Plan Next Visit Focus/Plan Next Note Type Treatment Note Next Visit Plan Progress with sEMG and gentle TA stabilization.
--- NOTE | 2018-10-17 16:40 | PT.OTN ---
Current Diagnoses Separation of muscle (nontraumatic), other site (10/17/18) Stress incontinence (female) (male) (10/17/18) Physical Therapy Treatment Note PT-OP-A Visit Information Start: 10/05/18 08:13 Freq: Status: Active Protocol: Document 10/17/18 09:45 AMB (Rec: 10/17/18 10:38 AMB [id number]) Out-Patient Physical Therapy Visit Information Visit Information Visit Type Treatment Note Visit Start Time 09:50 Visit Stop Time 10:30 Total Visit Minutes 40 Visit Number 3 PT-OP-B Current Condition Start: 10/05/18 08:13 Freq: Status: Active Protocol: Document 10/05/18 09:00 AMB (Rec: 10/05/18 15:58 AMB [email or web address]) Current Condition History of Current Condition Onset Date June 2018 Current Complaints stress urinary incontinence and diastasis recti History of Current Condition Cynthia has 2 children both delivered vaginally without tearing. She noticed leaking with running after the of her first child and ran 2 marathons using pads due to the leaking. The leaking worsened after the second delivery which was about 3 months ago. She did have diastasis recti after the first , which resolved on its own before second . Treatment Goals Patient/Caregiver Goals run marathons again without leaking, get diastasis recti to close Prior Functional Status Baseline Function- ADL's Independent Baseline Function- Mobility Independent Current Functional Impairments (Reported) Functional Limitations- ADL's leaking with exercise, intercourse, urgency Personal Factors Other Personal Factors That May Effect hypothyroid Therapy/Recovery PT-OP-C Subjective Start: 10/05/18 08:13 Freq: Status: Active Protocol: Document 10/17/18 09:45 AMB (Rec: 10/17/18 10:38 AMB [id number]) OP-PT Subjective Patient Comments Patient Comments Pt hiked up [place] and did not leak. PT-OP-I Pelvic Floor Start: 10/05/18 09:51 Freq: Status: Active Protocol: Document 10/05/18 09:00 AMB (Rec: 10/05/18 15:58 AMB [email or web address]) Pelvic Floor Assessment Urine Leakage Size Large Leakage Cause Cough Exercise Lifting Sneeze Urge Voiding Frequency 6 Nocturia 1 Urine Pad Type Maxi Pad Bowel Other Bowel Symptoms difficulty delaying need to defecate Pelvic Clock Pelvic Clock Other tightness at perineum Prolapse Cystocele Grade 1 Perineal Descent Resting Absent Bearing Present SEMG (uV) Baseline 2.3 Quick Contraction 14.2 Stability of Hold Fair SEMG Stability of Rest Good Contraction Ability Voluntary Contraction Weak Voluntary Relaxation Weak Manual Muscle Testing Left 0 Manual Muscle Testing Right 0 Manual Muscle Testing Anterior 0 Manual Muscle Testing Posterior 1 Comments Pelvic Floor Comments 1 finger width seperation above and below umbilicus PT-OP-Q Treatments Start: 10/05/18 08:13 Freq: Status: Active Protocol: Document 10/17/18 09:45 AMB (Rec: 10/17/18 16:40 AMB [email or web address]) Therapeutic Exercises Supine Exercises 2 Supine Exercise Name supine april Comments wiht pelvic floor and TrA 1 Supine Exercise Name roll in roll out Resistance #2 tband Comments with gentle TrA Sitting Exercises 1 Sitting Exercise Name quick flicks and long holds Reps/Minutes with TrA Standing Exercises 2 Standing Exercise Name standing long holds with TrA 1 Standing Exercise Name mini squat Comments with pelvic floor, challenging PT-OP-T Assessment and Plan Start: 10/05/18 08:13 Freq: Status: Active Protocol: Document 10/17/18 09:45 AMB (Rec: 10/17/18 16:40 AMB [email or web address]) Physical Therapy Plan Next Visit Focus/Plan Next Note Type Treatment Note Next Visit Plan Progress with sEMG and gentle TA stabilization.
--- NOTE | 2018-10-24 16:16 | PT.OTN ---
Current Diagnoses Separation of muscle (nontraumatic), other site (10/24/18) Stress incontinence (female) (male) (10/24/18) Physical Therapy Treatment Note PT-OP-A Visit Information Start: 10/05/18 08:13 Freq: Status: Active Protocol: Document 10/24/18 10:00 AMB (Rec: 10/24/18 10:24 AMB [id number]) Out-Patient Physical Therapy Visit Information Visit Information Visit Type Treatment Note Visit Start Time 09:50 Visit Stop Time 10:30 Total Visit Minutes 40 Visit Number 4 PT-OP-B Current Condition Start: 10/05/18 08:13 Freq: Status: Active Protocol: Document 10/05/18 09:00 AMB (Rec: 10/05/18 15:58 AMB [email or web address]) Current Condition History of Current Condition Onset Date June 2018 Current Complaints stress urinary incontinence and diastasis recti History of Current Condition Cynthia has 2 children both delivered vaginally without tearing. She noticed leaking with running after the of her first child and ran 2 marathons using pads due to the leaking. The leaking worsened after the second delivery which was about 3 months ago. She did have diastasis recti after the first , which resolved on its own before second . Treatment Goals Patient/Caregiver Goals run marathons again without leaking, get diastasis recti to close Prior Functional Status Baseline Function- ADL's Independent Baseline Function- Mobility Independent Current Functional Impairments (Reported) Functional Limitations- ADL's leaking with exercise, intercourse, urgency Personal Factors Other Personal Factors That May Effect hypothyroid Therapy/Recovery PT-OP-C Subjective Start: 10/05/18 08:13 Freq: Status: Active Protocol: Document 10/24/18 09:45 AMB (Rec: 10/25/18 08:15 AMB [email or web address]) OP-PT Subjective Patient Comments Patient Comments Didn't leak with one sneeze, but did leak with another this week. PT-OP-I Pelvic Floor Start: 10/05/18 09:51 Freq: Status: Active Protocol: Document 10/05/18 09:00 AMB (Rec: 10/05/18 15:58 AMB [email or web address]) Pelvic Floor Assessment Urine Leakage Size Large Leakage Cause Cough,Exercise,Lifting,Sneeze, Urge Voiding Frequency 6 Nocturia 1 Urine Pad Type Maxi Pad Bowel Other Bowel Symptoms difficulty delaying need to defecate Pelvic Clock Pelvic Clock Other tightness at perineum Prolapse Cystocele Grade 1 Perineal Descent Resting Absent Bearing Present SEMG (uV) Baseline 2.3 Quick Contraction 14.2 Stability of Hold Fair SEMG Stability of Rest Good Contraction Ability Voluntary Contraction Weak Voluntary Relaxation Weak Manual Muscle Testing Left 0 Manual Muscle Testing Right 0 Manual Muscle Testing Anterior 0 Manual Muscle Testing Posterior 1 Comments Pelvic Floor Comments 1 finger width seperation above and below umbilicus PT-OP-Q Treatments Start: 10/05/18 08:13 Freq: Status: Active Protocol: Document 10/24/18 09:45 AMB (Rec: 10/25/18 16:16 AMB [email or web address]) Therapeutic Exercises Supine Exercises 3 Supine Exercise Name pelvic floor contract with heel slide Reps/Minutes x10 2 Supine Exercise Name supine april Comments wiht pelvic floor and TrA 1 Supine Exercise Name roll in roll out Resistance #2 tband Comments with gentle TrA Sitting Exercises 2 Sitting Exercise Name on therapy ball Reps/Minutes 2x10 ea Comments LAQ, TKE Standing Exercises 2 Standing Exercise Name standing long holds with TrA 1 Standing Exercise Name mini squat Comments with pelvic floor, challenging Other Exercises 1 Other Exercise Name quadruped pelvic floor contract Comments challenging PT-OP-T Assessment and Plan Start: 10/05/18 08:13 Freq: Status: Active Protocol: Document 10/24/18 09:45 AMB (Rec: 10/25/18 08:15 AMB [email or web address]) Physical Therapy Assessment Assessment Summary Assessment Cynthia feels like she improving a little bit, but pelvic floor fatigues quickly and this is frustrating for her. Physical Therapy Plan Next Visit Focus/Plan Next Note Type Treatment Note Next Visit Plan Progress with sEMG and gentle TA stabilization.
--- NOTE | 2018-11-24 15:56 | PT.OTN ---
Current Diagnoses Separation of muscle (nontraumatic), other site (11/24/18) Stress incontinence (female) (male) (11/24/18) Physical Therapy Treatment Note PT-OP-A Visit Information Start: 10/05/18 08:13 Freq: Status: Active Protocol: Document 11/24/18 08:15 AMB (Rec: 11/27/18 07:19 AMB [email or web address]) Out-Patient Physical Therapy Visit Information Visit Information Visit Type Discharge Summary Visit Start Time 08:15 Visit Stop Time 09:00 Total Visit Minutes 45 Visit Number 5 PT-OP-B Current Condition Start: 10/05/18 08:13 Freq: Status: Active Protocol: Document 10/05/18 09:00 AMB (Rec: 10/05/18 15:58 AMB [email or web address]) Current Condition History of Current Condition Onset Date June 2018 Current Complaints stress urinary incontinence and diastasis recti History of Current Condition Cynthia has 2 children both delivered vaginally without tearing. She noticed leaking with running after the of her first child and ran 2 marathons using pads due to the leaking. The leaking worsened after the second delivery which was about 3 months ago. She did have diastasis recti after the first , which resolved on its own before second . Treatment Goals Patient/Caregiver Goals run marathons again without leaking, get diastasis recti to close Prior Functional Status Baseline Function- ADL's Independent Baseline Function- Mobility Independent Current Functional Impairments (Reported) Functional Limitations- ADL's leaking with exercise, intercourse, urgency Personal Factors Other Personal Factors That May Effect hypothyroid Therapy/Recovery PT-OP-C Subjective Start: 10/05/18 08:13 Freq: Status: Active Protocol: Document 11/24/18 08:15 AMB (Rec: 11/27/18 07:19 AMB [email or web address]) OP-PT Subjective Patient Comments Patient Comments Went on a two mile run and didn't have a leak. PT-OP-I Pelvic Floor Start: 10/05/18 09:51 Freq: Status: Active Protocol: Document 10/05/18 09:00 AMB (Rec: 10/05/18 15:58 AMB [email or web address]) Pelvic Floor Assessment Urine Leakage Size Large Leakage Cause Cough,Exercise,Lifting,Sneeze, Urge Voiding Frequency 6 Nocturia 1 Urine Pad Type Maxi Pad Bowel Other Bowel Symptoms difficulty delaying need to defecate Pelvic Clock Pelvic Clock Other tightness at perineum Prolapse Cystocele Grade 1 Perineal Descent Resting Absent Bearing Present SEMG (uV) Baseline 2.3 Quick Contraction 14.2 Stability of Hold Fair SEMG Stability of Rest Good Contraction Ability Voluntary Contraction Weak Voluntary Relaxation Weak Manual Muscle Testing Left 0 Manual Muscle Testing Right 0 Manual Muscle Testing Anterior 0 Manual Muscle Testing Posterior 1 Comments Pelvic Floor Comments 1 finger width seperation above and below umbilicus PT-OP-Q Treatments Start: 10/05/18 08:13 Freq: Status: Active Protocol: Document 11/24/18 08:15 AMB (Rec: 11/27/18 15:53 AMB [email or web address]) Therapeutic Exercises Supine Exercises 4 Supine Exercise Name small crunch Comments cones just slightly 2 Supine Exercise Name supine march Comments wiht pelvic floor and TrA Standing Exercises 2 Standing Exercise Name standing long holds with TrA Other Exercises 1 Other Exercise Name quadruped pelvic floor contract, with TrA Comments added UE flexion PT-OP-T Assessment and Plan Start: 10/05/18 08:13 Freq: Status: Active Protocol: Document 11/24/18 08:24 AMB (Rec: 11/24/18 09:07 AMB [id number]) Physical Therapy Assessment Goals Two Impairment abdominal stability Short Term Goal (STG) Cynthia will perform a crunch without coning to show improved core stability. STG Duration NOT MET, but progress made [place] Goal (LTG) Cynthia will have a half finger width diastasis or less. LTG Duration MET One Impairment continence Short Term Goal (STG) Cynthia will perform a pelvic floor contraction for 10 seconds in standing without compensation. STG Duration MET Halfway Goal (LTG) Cynthia will run for 10 minutes without leaking. LTG Duration MET Assessment Summary Assessment Cynthia feels ready to do her exercises at home. Her pelvic floor has improved so that she can go on short flat runs without leaking, and she has to the tools to continue to work on her diastasis recti independently. She does continue to have a small diastasis, and sprint work or plyometrics may continue to cause leaking, so she will need to continue to progress her exercises independently. Physical Therapy Plan Discharge Physical Therapy Discharge Reasons Goals Met
== END 2018-12-07 13:40 | disposition home or self-care (01) ==
LOC: PHYS 08:15
PROVIDERS: PCP Family Medicine; Visit Provider Family Medicine
DX: M62.08 Separation of muscle (nontraumatic), other site (principal); N39.3 Stress incontinence (female) (male)
CPT/HCPCS: 97110; 97112; 97161

== ENCOUNTER → 2020-09-29 16:37 | Outpatient (CLI) | payer OTHER, SELFPAY ==
[2020-09-29 18:53] LABS: HCG Quantitative /Beta subunit 2344.7 mIU/mL
== END ==
PROVIDERS: PCP Family Medicine; Referring Provider Family Medicine; Visit Provider Family Medicine
DX: O20.0 Threatened abortion (principal)
CPT/HCPCS: 36415; 84702

== ENCOUNTER → 2020-10-02 07:18 | Outpatient (CLI) | payer OTHER, SELFPAY ==
[2020-10-02 08:55] LABS: HCG Quantitative /Beta subunit 5069.3 mIU/mL
== END ==
PROVIDERS: PCP Family Medicine; Referring Provider Family Medicine; Visit Provider Family Medicine
DX: O20.0 Threatened abortion (principal)
CPT/HCPCS: 36415; 84702

== ENCOUNTER → 2020-10-17 09:34 | Outpatient (CLI) | payer OTHER, SELFPAY ==
--- NOTE | 2020-10-17 | DI.US.S_ITS ---
PROCEDURE: US OB <= 14 WEEKS FETUS INDICATIONS: SIZE AND DATES, THREATENED OUTSIDE/PRIOR DATING DATA: Last menstrual period (LMP): 08/24/2020 LMP-based estimated date of delivery (ANUJA): 05/31/2021 First dating scan (date and location): 10/17/2020. Estimated date of delivery (ANUJA) from first dating scan: 05/31/2021. TECHNIQUE: Real-time scanning was performed of the fetus and maternal pelvic organs, with image documentation. Endovaginal scanning was also performed to better visualize the fetus and maternal ovaries. COMPARISON: [facility], OB <= 14 WEEKS FETUS, 12/01/2017, 10:37. FINDINGS: Embryo: [place]-rump length measures 15 mm corresponding to 7 weeks 5 days. Heart rate: 163 beats per minute Small perigestational sac bleed site measuring up to 1.4 cm. There is an adjacent anechoic fluid collection measuring roughly 2.7 x 1.4 cm and no pole or yolk sac is seen. Measurement variability in dating: +/- 4 weeks by LMP, +/- 7 days by mean sac diameter (use before 6 weeks gestation if crown-rump length not able to be measured), +/- 5 days by crown-rump length (up to 8 weeks 6 days gestation), +/- 7 days by crown-rump length (up to 13 weeks 6 days gestation). Maternal organs: Ovaries within normal limits, with right corpus luteal cyst . IMPRESSION: 7 weeks 5 days single living IUP. Small perigestational sac bleed site. Small fluid collection adjacent to the gestational sac measuring up to 2.7 cm of unclear etiology. Attention on follow-up recommended. Dictated by: Juwan Moreno [facility] Interpreted: Rc Le MD on 10/17/2020 at 13:03 Transcribed by: AUDREY on 10/17/2020 at 13:06 Approved by: Rc Le M.D. on 10/17/2020 at 15:10
== END ==
PROVIDERS: PCP Family Medicine; Referring Provider Family Medicine; Visit Provider Family Medicine
DX: Z36.87 Encounter for antenatal screening for uncertain dates (principal); O20.0 Threatened abortion; Z3A.01 Less than 8 weeks gestation of pregnancy
CPT/HCPCS: 76801; 76817

== ENCOUNTER → 2020-10-22 12:09 | Outpatient (CLI) | payer OTHER, SELFPAY ==
--- NOTE | 2020-10-22 | DI.US.S_ITS ---
PROCEDURE: US OB LIMITED INDICATIONS: CONTINUED BLEEDING OUTSIDE/PRIOR DATING DATA: Last menstrual period (LMP): 08/24/20. LMP-based estimated date of delivery (ANUJA): 05/31/21 . First dating scan (date and location): 10/17/20 . Estimated date of delivery (ANUJA) from first dating scan: 05/31/21 . TECHNIQUE: Real-time scanning was performed of the fetus, with image documentation. Endovaginal scanning: Not performed COMPARISON: [facility], US OB LIMITED, 03/22/2018, 16:20. [facility], [facility], 02/05/2016, 16:34. FINDINGS: Placenta: Placental position is not yet established Amniotic fluid appearance: Normal. heart rate: 171 beats per minute. Estimated gestational age from initial scan: 8 weeks 3 days.. Note: Adjacent to the viable intrauterine gestation is a suspected additional amniotic sac, without visualized internal pole but debris within. Probable involuting twin gestation demise. Adjacent to the amniotic sac is a 1.6 x 2.3 x 2.5 cm irregular fluid collection consistent with subchorionic hemorrhage that is slightly enlarged. IMPRESSION: Presumed single twin gestation demise with involuting gestational sac, and with a small adjacent subchorionic hemorrhage. Currently the viable gestation shows normal cardiac activity. Dictated by: Rc Le M.D. on 10/22/2020 at 15:52 Approved by: Rc Le M.D. on 10/22/2020 at 15:57
== END ==
PROVIDERS: PCP Family Medicine; Referring Provider Family Medicine; Visit Provider Family Medicine
DX: O20.9 Hemorrhage in early pregnancy, unspecified (principal); Z3A.08 8 weeks gestation of pregnancy
CPT/HCPCS: 76815; 76817

== ENCOUNTER → 2020-11-06 07:56 | Outpatient (CLI) | payer OTHER, SELFPAY ==
--- NOTE | 2020-11-06 | DI.US.S_ITS ---
PROCEDURE: US OB <= 14 WEEKS FETUS INDICATIONS: FOLLOW-UP SUBCHORIONIC HEMORRHAGE OUTSIDE/PRIOR DATING DATA: Last menstrual period (LMP): 08/24/2020 LMP-based estimated date of delivery (ANUJA): 06/10/2021 First dating scan (date and location): 10/17/2020 Estimated date of delivery (ANUJA) from first dating scan: 05/31/2021 TECHNIQUE: Real-time scanning was performed of the fetus and maternal pelvic organs, with image documentation. Endovaginal scanning was also performed to better visualize the fetus and maternal ovaries. COMPARISON: [facility], OB <= 14 WEEKS FETUS, 10/17/2020, 9:53. FINDINGS: Embryo: Single intrauterine gestational sac is seen with fetus and cardiac activity detected. [place]-rump length measures 4.2 cm. Estimated gestational age based on current study is 11 weeks, 0 day. Estimated gestational age based on previous study is 10 weeks, 4 days. Previously described possible 2nd gestational sac with demise twin is no longer seen. Heart rate: 163 beats per minute. No perigestational hemorrhage is seen. Measurement variability in dating: +/- 4 weeks by LMP, +/- 7 days by mean sac diameter (use before 6 weeks gestation if crown-rump length not able to be measured), +/- 5 days by crown-rump length (up to 8 weeks 6 days gestation), +/- 7 days by crown-rump length (up to 13 weeks 6 days gestation). Maternal organs: Ovaries are not well seen on the current study. IMPRESSION: 1. Single live intrauterine is seen on the current study with heart rate measures 163 beats per minute. Estimated gestational age based on current study is 11 weeks. This is consistent with normal growth. 2. There is no evidence of a 2nd gestational sac on the current study. No evidence of perigestational hemorrhage. Dictated by: Andres Manuel M.D. on 11/06/2020 at 10:22 Approved by: Andres Manuel M.D. on 11/06/2020 at 10:25
== END ==
PROVIDERS: PCP Family Medicine; Referring Provider Family Medicine; Visit Provider Family Medicine
DX: O20.8 Other hemorrhage in early pregnancy (principal); Z3A.11 11 weeks gestation of pregnancy
CPT/HCPCS: 76801; 76817

== ENCOUNTER 2020-11-26 19:20 | Emergency (ER) | payer OTHER, SELFPAY ==
[2020-11-26 19:31] VITALS: BP 158/93; PULSE 93; RESP 14; TEMP 36.9; O2SAT 99
--- NOTE | 2020-11-26 19:31 | DI.US.S_ITS ---
PROCEDURE: US OB LIMITED INDICATIONS: BLEEDING OUTSIDE/PRIOR DATING DATA: Last menstrual period (LMP): 08/24/2020. LMP-based estimated date of delivery (ANUJA): 05/31/21 . First dating scan (date and location): 10/17/2020 . Estimated date of delivery (ANUJA) from first dating scan: 05/31/2021 . TECHNIQUE: Real-time scanning was performed of the fetus, with image documentation. COMPARISON: [facility], OB <= 14 WEEKS FETUS, 10/17/2020, 9:53. [facility], OB LIMITED, 10/22/2020, 12:42. FINDINGS: A single living intrauterine gestation is present. Presentation: Early. Placenta: A complete placenta previa is noted. There is a hypoechoic heterogeneous region along the placenta measuring approximately 6.1 x 4.9 x 2.0 cm likely representing a subchorionic hematoma which appears slightly increased in prominence compared to the prior study. Amniotic fluid: Appears grossly within normal limits. heart rate: 149 beats per minute. Maternal cervical canal: Not well seen. Biometry: BPD: 2.5 cm, 14 weeks 2 days HC: 9.3 cm, 14 weeks 1 day AC: 7.7 cm 14 weeks 1 day FL: 1.3 cm, 13 weeks 5 days Estimated gestational age from initial scan: 13 weeks 3 days. Estimated gestational age on current scan: 14 weeks 1 day IMPRESSION: 1. Single living intrauterine demonstrating appropriate interval growth with composite gestational age of 14 weeks 1 day. 2. Small hypoechoic heterogeneous region along the placenta likely representing a subchorionic hematoma. This appears increased in prominence compared to the prior study. Placental abruption is less likely. No history of trauma per Dr. Batista. 3. Complete placenta previa noted likely due to early gestational age. Recommend attention on follow-up. Dictated by: Georgi Pardo M.D. on 11/26/2020 at 22:08 Approved by: Georgi Pardo M.D. on 11/26/2020 at 22:18
--- NOTE | 2020-11-26 19:41 | ED_ITS ---
HPI - General Adult General Chief complaint: Vaginal Bleeding Stated complaint: 13 1/2 week preg urogen bleeding, gushing blood Time Seen by Provider: 11/26/20 19:24 Source: patient Mode of arrival: Ambulatory History of Present Illness HPI narrative: Patient is a at approximately 13 and half weeks to is here for evaluation of vaginal bleeding. She states that this was a planned . Had no medications to aid in getting . Has seen OB in this up to this point. Her prior to sent it in spontaneous uncomplicated vaginal deliveries. She states that this has been complicated by the fact that early on she had an ultrasound which showed a twin gestation. Subsequent ultrasound shows that she lost 1 of the twins. She was at her normal state health until a couple hours prior to coming here to the emergency department where she had a sudden onset of vaginal bleeding and also lower abdominal cramping. Is taking Zofran for nausea. Has had some constipation. Contacted her Ob any individual on-call advised that she come to the emergency department for evaluation. Related Data Home Medications Medication Instructions Recorded Confirmed levothyroxine 50 mcg tablet 50 mcg PO DAILY 12/26/17 07/16/18 liothyronine 25 mcg tablet 25 mcg PO DAILY 12/26/17 07/16/18 (Cytomel) Previous Rx's Medication Instructions Recorded ibuprofen 600 mg tablet 600 mg PO Q6HR PRN #60 tab 07/18/18 metoclopramide HCl 10 mg tablet 10 mg PO ACHS #20 tab 07/18/18 amoxicillin 875 mg-potassium 1 tab PO BID #14 tab 05/07/19 clavulanate 125 mg tablet Allergies Allergy/AdvReac Type Severity Reaction Status Date / Time No Known Drug Allergies Allergy Verified 11/26/20 19:31 Review of Systems Constitutional Constitutional: Reports system reviewed and no additional complaints, except as documented Cardiovascular Cardiovascular: Reports system reviewed and no additional complaints, except as documented Respiratory Respiratory: Reports system reviewed and no additional complaints, except as documented Gastrointestinal Gastrointestinal: Reports as per HPI and Reports system reviewed and no additional complaints, except as documented Genitourinary Genitourinary: Reports system reviewed and no additional complaints, except as documented and Reports as per HPI Integumentary/Breasts Skin/Breast: Reports system reviewed and no additional complaints, except as documented Neurologic Neurologic: Reports system reviewed and no additional complaints, except as documented Hematologic/Lymphatic On Anticoagulants: No Patient History Medical History Anxiety Hypothyroid Social History Smoking Status: Never smoker Smoking Status: Never smoker alcohol intake frequency: holidays/special occasions only Substance Use Type: does not use Exam Initial Vital Signs Initial Vital Signs: Vital Signs Temperature 98.5 F 11/26/20 19:31 Pulse Rate 93 H 11/26/20 19:31 Respiratory Rate 14 11/26/20 19:31 Blood Pressure 158/93 H 11/26/20 19:31 Pulse Oximetry 99 11/26/20 19:31 Const General: cooperative and comfortable HENMT Head: normal to inspection and normocephalic Resp Effort & Inspection: normal respiratory effort Auscultation: clear to auscultation bilaterally Cardio Rate: regular rate Rhythm: regular rhythm GI Inspection: normal to inspection Palpation: soft and No tender Skin General: no rashes or lesions noted Neuro General: patient alert, patient awake and moves all extremities Extrem General: normal to inspection and capillary refill normal Psych Appearance: grossly normal and well kempt Course Orders Ordered: ED Orders 11/26/20 19:31 US OB limited Stat 11/26/20 19:50 Complete Blood Count AUTO DIFF Stat Comprehensive Metabolic Panel Stat HCG Quantitative /Beta subunit Stat Thyroid Stimulating Hormone Stat Type and Screen Stat 11/26/20 20:15 Urinalysis and Microscopic Stat Discontinued Medications Ondansetron HCl (Ondansetron 4 Mg/2 Ml Inj) 4 mg IV NOW ONE Stop: 11/26/20 21:04 Last Admin: 11/26/20 21:08 Dose: 4 mg Documented by: ROSA ISELA Vital Signs Vital signs: Vital Signs - 8 hr 11/26/20 19:31 11/26/20 21:12 Temperature 98.5 F Pulse Rate 93 H 88 Respiratory Rate 14 18 Blood Pressure 158/93 H 138/86 Pulse Oximetry 99 99 Medical Decision Making Medical Records Medical records reviewed: Yes I reviewed the patient's medical records. Lab Data Lab results reviewed: Yes I reviewed the patient's lab results. Result diagrams: 11/26/20 19:50 11/26/20 19:50 Labs: Lab Results 09/29/21 09/29/21 09/29/21 Range/Units 19:50 19:50 19:50 WBC 8.8 (4.5-11.0) X10^3/uL RBC 4.36 (4.0-5.2) X10^6/uL Hgb 13.5 (12.0-16.0) g/dL Hct 38.9 (36-46) % MCV 89.2 (80-100) fL MCH 30.9 (26-34) PG MCHC 34.6 (30-36) % RDW 12.8 (11.6-14.8) % Plt Count 266 (150-400) X10^3/uL Neut % (Auto) 75.8 H (50-75) % Lymph % (Auto) 16.8 L (25-40) % [place] % (Auto) 5.6 (3-14) % Eos % (Auto) 1.2 L (2-4) % Baso % (Auto) 0.6 (0-2) % Neut # (Auto) 6600 (8704-1248) /uL Lymph # (Auto) 1500 (5068-3469) /uL [place] # (Auto) 500 (0-900) /uL Eos # (Auto) 100 (0-450) /uL Baso # (Auto) 100 (0-100) /uL Sodium 136 L (137-145) mmol/L Potassium 3.6 (3.4-5.1) mmol/L Chloride 102 (98-107) mmol/L Carbon Dioxide 28 (22-32) mmol/L BUN 13 (7-17) mg/dL Creatinine 0.54 (0.52-1.04) mg/dL Estimated GFR > 60.0 (>60) mL/min BUN/Creatinine Ratio 24.1 H (6-22) Glucose 91 (70-100) mg/dL Calcium 9.5 (8.4-10.2) mg/dL Total Bilirubin 0.2 (0.2-1.3) mg/dL AST 23 (14-36) IU/L ALT 11 (<35) IU/L Alkaline Phosphatase 46 (38-126) U/L Total Protein 7.6 (6.3-8.2) g/dL Albumin 4.3 (3.5-5.0) g/dL Globulin 3.3 (1.7-4.1) g/dL Albumin/Globulin Ratio 1.3 (1.0-2.8) TSH 3.33 (0.47-4.68) uIU/mL HCG, Quant 40801 mIU/mL Urine Color Urine Appearance Urine pH (4.5-8.0) Ur Specific [place] (1.000-1.035) Urine Protein (Negative) Urine Glucose (UA) (Negative) g/dL Urine Ketones (NEGATIVE) Urine Occult Blood (Negative) Urine Nitrate (Negative) Urine Bilirubin (NEGATIVE) Urine Urobilinogen (0.2) E.U./dL Ur Leukocyte Esterase (NEGATIVE) Urine RBC (0-5/HPF) Urine WBC (0-5/HPF) Ur Squamous Epith Cells (0-5/HPF) Urine Bacteria (None) Ur Culture Indicated? Blood Type Antibody Screen 11/26/20 11/26/20 Range/Units 19:50 20:15 WBC (4.5-11.0) X10^3/uL RBC (4.0-5.2) X10^6/uL Hgb (12.0-16.0) g/dL Hct (36-46) % MCV (80-100) fL MCH (26-34) PG MCHC (30-36) % RDW (11.6-14.8) % Plt Count (150-400) X10^3/uL Neut % (Auto) (50-75) % Lymph % (Auto) (25-40) % [place] % (Auto) (3-14) % Eos % (Auto) (2-4) % Baso % (Auto) (0-2) % Neut # (Auto) (3254-0728) /uL Lymph # (Auto) (1643-7173) /uL [place] # (Auto) (0-900) /uL Eos # (Auto) (0-450) /uL Baso # (Auto) (0-100) /uL Sodium (137-145) mmol/L Potassium (3.4-5.1) mmol/L Chloride (98-107) mmol/L Carbon Dioxide (22-32) mmol/L BUN (7-17) mg/dL Creatinine (0.52-1.04) mg/dL Estimated GFR (>60) mL/min BUN/Creatinine Ratio (6-22) Glucose (70-100) mg/dL Calcium (8.4-10.2) mg/dL Total Bilirubin (0.2-1.3) mg/dL AST (14-36) IU/L ALT (<35) IU/L Alkaline Phosphatase (38-126) U/L Total Protein (6.3-8.2) g/dL Albumin (3.5-5.0) g/dL Globulin (1.7-4.1) g/dL Albumin/Globulin Ratio (1.0-2.8) TSH (0.47-4.68) uIU/mL HCG, Quant mIU/mL Urine Color Yellow Urine Appearance Clear Urine pH 7.0 (4.5-8.0) Ur Specific [place] 1.010 (1.000-1.035) Urine Protein Negative (Negative) Urine Glucose (UA) Negative (Negative) g/dL Urine Ketones Negative (NEGATIVE) Urine Occult Blood 2+ H (Negative) Urine Nitrate Negative (Negative) Urine Bilirubin Negative (NEGATIVE) Urine Urobilinogen 0.2 (0.2) E.U./dL Ur Leukocyte Esterase Negative (NEGATIVE) Urine RBC 5-10/hpf H (0-5/HPF) Urine WBC 0-1/hpf (0-5/HPF) Ur Squamous Epith Cells 0-1 /hpf (0-5/HPF) Urine Bacteria None seen (None) Ur Culture Indicated? Cult not indicated Blood Type AB Positive Antibody Screen Negative Imaging Data US - OB: Radiologist's Impression: [address] [id number] ReportSigned Patient: Cynthia Tristan MMR#: [id number]: [id number]:[id number]/Sex: 35 / FDate of Service: 11/26/20Loc: EDAccession Number: [id number] Procedure: US OB limited Ordering Provider: Abel Batista D.O. PROCEDURE: US OB LIMITED INDICATIONS: BLEEDING OUTSIDE/PRIOR DATING DATA: Last menstrual period (LMP): 08/24/2020. LMP-based estimated date of delivery (ANUJA): 05/31/21 . First dating scan (date and location): 10/17/2020 . Estimated date of delivery (ANUJA) from first dating scan: 05/31/2021 . TECHNIQUE: Real-time scanning was performed of the fetus, with image documentation. COMPARISON: [facility], , OB <= 14 WEEKS FETUS, 10/17/2020, 9:53. [facility], OB LIMITED, 10/22/2020, 12:42. FINDINGS: A single living intrauterine gestation is present. Presentation: Early. Placenta: A complete placenta previa is noted. There is a hypoechoic heterogeneous region along the placenta measuring approximately 6.1 x 4.9 x 2.0 cm likely representing a subchorionic hematoma which appears slightly increased in prominence compared to the prior study. Amniotic fluid: Appears grossly within normal limits. heart rate: 149 beats per minute. Maternal cervical canal: Not well seen. Biometry: BPD: 2.5 cm, 14 weeks 2 days HC: 9.3 cm, 14 weeks 1 day AC: 7.7 cm 14 weeks 1 day FL: 1.3 cm, 13 weeks 5 days Estimated gestational age from initial scan: 13 weeks 3 days. Estimated gestational age on current scan: 14 weeks 1 day IMPRESSION: 1. Single living intrauterine demonstrating appropriate interval growth with composite gestational age of 14 weeks 1 day. 2. Small hypoechoic heterogeneous region along the placenta likely representing a subchorionic hematoma. This appears increased in prominence compared to the prior study. Placental abruption is less likely. No history of trauma per Dr. Batista. 3. Complete placenta previa noted likely due to early gestational age. Recommend attention on follow-up. Dictated by: Georgi aPrdo M.D. on 11/26/2020 at 22:08 Approved by: Georgi Pardo M.D. on 11/26/2020 at 22:18 Discharge Plan Departure Patient Disposition: Home Clinical Impression: Threatened miscarriage, Placenta previa Instructions: Threatened Miscarriage Activity Restrictions/Additional Instructions: I recommend that tomorrow you contact your OB provider for a follow-up. She should be able to see all of the workup that we did this evening. I also recom mend pelvic rest until you see your OB provider. Continue all of your medications as directed. Return to the emergency department for any new or worsening symptoms like we discussed. Prescriptions: No Action amoxicillin-pot clavulanate 875-125 mg tablet 1 tab PO BID Qty: 14 RF: 0 liothyronine [Cytomel] 25 mcg tablet 25 mcg PO DAILY RF: 0 levothyroxine 50 mcg tablet 50 mcg PO DAILY RF: 0 ibuprofen 600 mg Tablet 600 mg PO Q6HR PRN (Reason: Pain, Mild (1-3)) Qty: 60 RF: 0 metoclopramide HCl 10 mg Tablet 10 mg PO ACHS Qty: 20 RF: 0 Referrals: Julia Mishra MD [Primary Care Provider] -
--- NOTE | 2020-11-26 19:58 | PC.NURSE ---
20 gauge iv inserted and labs drawn.
[2020-11-26 20:01] LABS: Add Manual Diff / Slide Review NO; Basophils Absolute Auto 100 /uL (0-100); Basophils Percent Auto 0.6 % (0-2); Eosinophils Absolute Auto 100 /uL (0-450); Eosinophils Percent Auto 1.2 % (2-4); Hematocrit 38.9 % (36-46); Hemoglobin 13.5 g/dL (12.0-16.0); Lymphocytes Absolute Auto 1500 /uL (1100-4500); Lymphocytes Percent Auto 16.8 % (25-40); Mean Corpuscular HGB Conc 34.6 % (30-36); Mean Corpuscular Hemoglobin 30.9 PG (26-34); Mean Corpuscular Volume 89.2 fL (80-100); Monocytes Absolute Auto 500 /uL (0-900); Monocytes Percent Auto 5.6 % (3-14); Neutrophils Absolute Auto 6600 /uL (1500-7000); Neutrophils Percent Auto 75.8 % (50-75); Platelet Count 266 X10^3/uL (150-400); Red Blood Cell Count 4.36 X10^6/uL (4.0-5.2); Red Cell Distribution Width 12.8 % (11.6-14.8); White Blood Cell Count 8.8 X10^3/uL (4.5-11.0)
[2020-11-26 20:14] LABS: Alanine Aminotransferase 11 IU/L (<35); Albumin 4.3 g/dL (3.5-5.0); Albumin Globulin Ratio 1.3 (1.0-2.8); Alkaline Phosphatase 46 U/L (38-126); Aspartate Aminotransferase 23 IU/L (14-36); BUN Creatinine Ratio 24.1 (6-22); Bilirubin Total 0.2 mg/dL (0.2-1.3); Blood Urea Nitrogen 13 mg/dL (7-17); Calcium 9.5 mg/dL (8.4-10.2); Carbon Dioxide 28 mmol/L (22-32); Chloride 102 mmol/L (98-107); Estimated Glomerular Filt Rate > 60.0 mL/min (>60); Globulin 3.3 g/dL (1.7-4.1); Glucose 91 mg/dL (70-100); HEMOLYSIS < 15 (0-50); Potassium 3.6 mmol/L (3.4-5.1); Sodium 136 mmol/L (137-145); Total Protein 7.6 g/dL (6.3-8.2)
[2020-11-26 20:25] LABS: Appearance Urine UA CLEAR; Bilirubin Urine UA NEGATIVE (NEGATIVE); Color Urine UA YELLOW; Glucose Urine UA NEGATIVE (Negative); Ketones Urine UA NEGATIVE (NEGATIVE); Leukocyte Esterase Urine UA NEGATIVE (NEGATIVE); Nitrite Urine UA NEGATIVE (Negative); Occult Blood Urine UA 2+ (Negative); Protein Urine UA NEGATIVE (Negative); Urobilinogen Urine UA 0.2 E.U./dL (0.2)
[2020-11-26 20:32] LABS: Bacteria Urine None Seen; Culture Indicated Urine Cult Not Indicated; RBC Urine 5-10/HPF (0-5/HPF); Squamous Epithelial Cell Urine 0-1 /HPF (0-5/HPF); WBC Urine 0-1/HPF (0-5/HPF)
[2020-11-26 20:44] LABS: Thyroid Stimulating Hormone 3.33 uIU/mL (0.47-4.68)
[2020-11-26 20:54] LABS: HCG Quantitative /Beta subunit 59794 mIU/mL
[2020-11-26] MEDS: ONDANSETRON 4 MG/2 ML INJ IV (21:08)
[2020-11-26 21:12] VITALS: BP 138/86; PULSE 88; RESP 18; O2SAT 99
[2020-11-26 22:35] VITALS: BP 135/90; PULSE 82; RESP 18; O2SAT 99
== END 2020-11-26 22:36 | disposition home or self-care (01) ==
PROVIDERS: Emergency Provider Emergency Medicine; PCP Family Medicine
DX: O20.0 Threatened abortion (principal); O44.01 Complete placenta previa NOS or without hemorrhage, first trimester; K59.00 Constipation, unspecified; Z3A.13 13 weeks gestation of pregnancy
CPT/HCPCS: 76815; 80053; 81001; 84443; 84702; 85025; 86850; 86900; 86901; 96374; 99284; J2405

== ENCOUNTER → 2021-01-12 11:27 | Outpatient (CLI) | payer OTHER, SELFPAY ==
[2021-01-12 15:43] LABS: COVID19 -Nasal RAPID Negative (Negative)
== END ==
PROVIDERS: PCP Family Medicine; Referring Provider Physician Assistant; Visit Provider Physician Assistant
DX: Z01.812 Encounter for preprocedural laboratory examination (principal); Z20.822 Contact with and (suspected) exposure to COVID-19
CPT/HCPCS: 87635

== ENCOUNTER → 2021-01-13 11:27 | Outpatient (CLI) | payer OTHER, SELFPAY ==
[2021-01-16 20:09] LABS: AFP Value 66.7 ng/mL (.); Gest Age on Col Date 20.3 weeks (.); Gestational Age EDD (.); Insulin Dep Diabetes No (.); OSBR Risk 1IN 7366 (.); Results Report (.); Test Results *Screen Negative* (.)
== END ==
PROVIDERS: PCP Family Medicine; Referring Provider Obstetrics & Gynecology; Visit Provider Obstetrics & Gynecology
DX: Z34.82 Encounter for supervision of other normal pregnancy, second trimester (principal); Z3A.20 20 weeks gestation of pregnancy
CPT/HCPCS: 36415; 82105

== ENCOUNTER → 2021-03-02 08:31 | Outpatient (CLI) | payer OTHER, SELFPAY ==
[2021-03-02 11:38] LABS: Hematocrit 36.7 % (36-46); Hemoglobin 12.9 g/dL (12.0-16.0)
[2021-03-02 12:09] LABS: GTT (PREG) 1 Hour PP 50gm Dose 55 mg/dL (76-139)
[2021-03-02 12:19] LABS: Free T4, Direct Thyroxine 0.55 ng/dL (0.78-2.19)
[2021-03-02 12:33] LABS: Thyroid Stimulating Hormone 0.708 uIU/mL (0.47-4.68)
== END ==
PROVIDERS: PCP Family Medicine; Referring Provider Obstetrics & Gynecology; Visit Provider Obstetrics & Gynecology
DX: O99.280 Endocrine, nutritional and metabolic diseases complicating pregnancy, unspecified trimester (principal); Z3A.25 25 weeks gestation of pregnancy; E03.9 Hypothyroidism, unspecified
CPT/HCPCS: 36415; 82950; 84439; 84443; 85014; 85018

== ENCOUNTER → 2021-04-20 16:01 | Outpatient (CLI) | payer OTHER, SELFPAY ==
[2021-04-22 13:11] LABS: Parvovirus B19 IgG 6.8 index (0.0-0.8); Parvovirus B19 IgM 0.1 index (0.0-0.8)
== END ==
PROVIDERS: PCP Family Medicine; Referring Provider Obstetrics & Gynecology; Visit Provider Obstetrics & Gynecology
DX: B08.3 Erythema infectiosum [fifth disease] (principal)
CPT/HCPCS: 36415; 86747

== ENCOUNTER → 2021-05-13 09:49 | Outpatient (CLI) | payer OTHER, SELFPAY ==
[2021-05-14 08:06] LABS: Strep Grp B PCR NEG for Grp B Strep
== END ==
PROVIDERS: PCP Family Medicine; Visit Provider Obstetrics & Gynecology
DX: Z34.83 Encounter for supervision of other normal pregnancy, third trimester (principal); Z3A.37 37 weeks gestation of pregnancy
CPT/HCPCS: 87653

== ENCOUNTER 2021-05-27 09:20 | Inpatient (IN) | payer OTHER, SELFPAY ==
[2021-05-27 10:24] LABS: Add Manual Diff / Slide Review NO; Basophils Absolute Auto 0 /uL (0-100); Basophils Percent Auto 0.2 % (0-2); Eosinophils Absolute Auto 0 /uL (0-450); Eosinophils Percent Auto 0.6 % (2-4); Hematocrit 40.4 % (36-46); Hemoglobin 14.1 g/dL (12.0-16.0); Lymphocytes Absolute Auto 800 /uL (1100-4500); Mean Corpuscular Hemoglobin 31.4 PG (26-34); Mean Corpuscular Volume 89.7 fL (80-100); Monocytes Absolute Auto 400 /uL (0-900); Neutrophils Absolute Auto 7300 /uL (1500-7000); Neutrophils Percent Auto 85.2 % (50-75); Platelet Count 192 X10^3/uL (150-400); Red Blood Cell Count 4.51 X10^6/uL (4.0-5.2); Red Cell Distribution Width 12.7 % (11.6-14.8); White Blood Cell Count 8.6 X10^3/uL (4.5-11.0)
[2021-05-27] MEDS: LACTATED RINGERS 1,000 ML 100 ML IV ×3 (10:41→22:39)
[2021-05-27] MEDS: OXYTOCIN PREMIX 30 UNIT/500 ML PLAST..BAG IV (10:41)
[2021-05-27 12:44] LABS: COVID19 -Nasal RAPID Negative (Negative)
[2021-05-27] MEDS: FENT 2MCG/ML BUPIV 0.125% EPI 200 MCG/100 ML PLAST..BAG 8 MCG EPIDURAL (13:10)
[2021-05-27 13:22] VITALS: BP 139/89
[2021-05-27] MEDS: ONDANSETRON 4 MG/2 ML INJ IV (16:54)
[2021-05-27] MEDS: TRANEXAMIC ACID 1,000 MG in SODIUM CHLORIDE 0.9% 100 ML 200 ML IV (19:50)
[2021-05-27] MEDS: miSOPROStoL 200 MCG TABLET 800 MCG PR (19:57)
--- NOTE | 2021-05-27 20:14 | PM.OBHP.IH.1 ---
OB HPI Date/Time Date of admission: 05/27/21 Date Patient Seen: 05/27/21 Time Patient Seen: 13:00 History of Present Condition Chief complaint: LABOR CHECK ANUJA Calculator Estimated Delivery Date Method Current WG Current Estimate 05/31/21 LMP (Certain) 39w 3d Other Estimates 05/31/21 Ultrasound #1 39w 3d 05/26/21 Ultrasound #2 40w 1d Estimated Gestational Age (weeks): 39+3 : 3 Para: 2 care: good care, initiated at week # (6), number of visits (14) and pounds weight gain (45) Dating criteria OB: LMP confirmed by 1st trimester US Ultrasounds: normal 1st trimester US and normal mid trimester US Obstetrical complications: other (Second trimester bleed) Medical complications OB: none Indications Indication for induction OB: maternal discomfort Preadmission Labs Last OB Lab Results: Blood Type AB Positive 05/27/21 10:05 05/27/21 Antibody Screen Negative 05/27/21 10:05 05/27/21 Hematocrit 40.4 % (36-46) 05/27/21 10:05 05/27/21 Hemoglobin 14.1 g/dL (12.0-16.0) 05/27/21 10:05 05/27/21 Glucose 1 Hour 55 mg/dL (76-139) L 03/02/21 08:54 03/02/21 Group B Streptococcus (PCR) Neg for grp b strep 05/13/21 09:49 05/13/21 -: Chlamydia screen: negative, Gonorrhea screen: negative and Urine: negative -: PAP smear: Normal Genetic Screens: Cell-free DNA: Normal and Alpha-fetoprotein: Normal External Labs -: HBsAG: negative, HIV: negative, RPR/VDLR: negative and Urine: negative -: Rubella: immune and Varicella: immune HCAB: negative PAP: Normal Prior (ies) Past Pregnancies Del. Date GA/Weeks Labor Lgth Wt Sex Route Outcome Anesthesia Place Delv Breastfeed Preg Comp Name 03/03/16 41 36 7 lb Female vaginal live - full term epidural IH Yes- 14 months hemorrhage Gates 07/17/18 39 15 8 lb 15 oz Female vaginal live - full term epidural IH Yes- 15 months hemorrhage Lili Evaluation Evaluation Baseline heart rate: 135 Variability: Moderate (11-25) monitor accelerations: Present Monitor Decelerations: Absent Contraction Frequency (minutes): 6 Uterine Contraction Intensity: Mild Dilation (cm): 3 Effacement (%): 80 Dilation: 3-4 cm Effacement: >/=80% station: -1 Position of cervix: posterior Consistency: medium Steele score: 8 [facility] Medical History (Updated 04/29/21 @ 09:55 by Jacklyn Gardner MD) Anxiety (~2009) Complete placenta previa nos or without hemorrhage, second trimester (~10/2020) Continuing after spontaneous of one fetus or more, first trimester, not applicable or unspecified (~12/10/20) History of hemorrhage Hypothyroid (~2015) Normal colonoscopy (~2004) (spontaneous vaginal delivery) (spontaneous vaginal delivery) Surgical History (Updated 12/10/20 @ 10:42 by Duane Garcia RN) [place] teeth removed (~2002) Family History (Updated 12/20/20 @ 22:31 by Marielle Goldsmith) Mother Hypertension Hypothyroidism Father Hyperlipidemia Grandmother Cancer Anxiety Grandfather Hypertension A-fib Stroke Grandmother Hypertension A-fib Subdural hematoma History of heart disease Hyperlipidemia Grandfather Diabetes mellitus Hyperlipidemia History of heart disease Brother Kidney stones Sister Female fertility problem Social History marital status: household members: spouse lives independently: No caregiver/support person: No housing: house pets and animals: Yes (dog and cat) education level: college occupational status: employed Previous occupational history: RN eben/druze: [employer] special eben needs: No Smoking Status: Never smoker second hand exposure: No alcohol intake: former (pre- moderate) substance use type: does not use Meds Home Medications and Allergies Home Medications Medication Instructions Recorded Confirmed Type prenat.vits,eugene,ykc-niyb-eptsk 1 tab PO DAILY 12/10/20 05/27/21 History pyridoxine (vitamin B6) 25 mg 25 mg PO DAILY 12/10/20 05/27/21 History tablet levothyroxine 100 mcg tablet 100 mcg PO DAILY #90 tab 03/06/21 05/27/21 Rx liothyronine 25 mcg tablet 25 mcg PO DAILY #10 tab 04/02/21 05/27/21 Rx (Cytomel) sertraline 25 mg tablet 25 mg PO DAILY tab 05/13/21 05/27/21 History Allergies Allergy/AdvReac Type Severity Reaction Status Date / Time No Known Drug Allergies Allergy Verified 05/27/21 08:40 OB Exam Narrative Exam Narrative: Generally: Patient in no acute distress Fundal height: 39 cm Estimated weight: 7-1/2 lb Extremities: Negative Homans, no edema Objective Labs Result Diagrams: 05/27/21 10:05 Labs: Laboratory Results - last 24 hr 05/27/21 05/27/21 05/27/21 10:05 10:05 11:25 WBC 8.6 RBC 4.51 Hgb 14.1 Hct 40.4 MCV 89.7 MCH 31.4 MCHC 35.0 RDW 12.7 Plt Count 192 Neut % (Auto) 85.2 H Lymph % (Auto) 9.0 L [place] % (Auto) 5.0 Eos % (Auto) 0.6 L Baso % (Auto) 0.2 Neut # (Auto) 7300 H Lymph # (Auto) 800 L [place] # (Auto) 400 Eos # (Auto) 0 Baso # (Auto) 0 SARS-CoV-2 (PCR) Negative Blood Type AB Positive Antibody Screen Negative Assessment and Plan Assessment and Plan Assessment and Plan narrative: Assessment: 35-year-old 3 para 2 at 39-,3/7 weeks gestation for induction of labor Plan: Pitocin per protocol 2 Epidural Artificial rupture of membranes once comfortable Expected management to spontaneous vaginal delivery Time Spent with Patient Total time spent with greater than 50% in coordination of care (as documented) at patient's floor/unit and/or counseling patient:: 15-24 minutes
--- NOTE | 2021-05-27 20:20 | PM.OBPNLAB ---
Date/Time Date Patient Seen: 05/27/21 Time Patient Seen: 13:45 Pain Control Pain control: tolerating well Pelvic Exam Dilation (cm): 4 Effacement (%): 80 station: -1 Amniotic membrane status: Intact Contractions Contractions on admission: irregular Monitor mode: External Pitocin rate (mU/min): 9 Contraction frequency (min): 4 Contraction pattern: Regular Contraction intensity: Moderate Status status: Category l Heart Rate Baseline: 140 Monitor Accelerations: Present Monitor Decelerations: Absent Monitor Variability: Moderate Assessment and Plan Assessment: induction ongoing Plan: continuous present management
--- NOTE | 2021-05-27 20:22 | PM.OBPNLAB ---
Date/Time Date Patient Seen: 05/27/21 Time Patient Seen: 15:00 Pain Control Pain control: epidural Comments: Called to see pt for increased bleeding Pelvic Exam Dilation (cm): 4 Effacement (%): 90 station: 0 Amniotic membrane status: Ruptured Contractions Contractions on admission: irregular Monitor mode: External Pitocin rate (mU/min): 0 Contraction frequency (min): 3 Contraction pattern: Regular Contraction intensity: Strong/Firm Status status: Category l Heart Rate Baseline: 140 Monitor Accelerations: Present Monitor Decelerations: Absent Monitor Variability: Moderate Assessment and Plan Assessment: induction ongoing Plan: continuous present management
--- NOTE | 2021-05-27 20:23 | PM.OBPRVD ---
Events: Labor Induction Labor & Delivery Delivery date: 05/27/21 Intrapartal Events: Bleeding Cervical ripening method: none Induction method: per pitocin protocol Delivery augmentation: rupture of membranes Delivery monitor: external FHT and external uterine Route of delivery: Episiotomy description: None L&D Laceration Description: None Estimated blood loss (mL): 800 Anesthesia Type: Epidural Complications: Bleeding during labor, and PPH Narrative: Patient complete and pushed with 3 contractions. At 7:34 p.m., a live female infant delivered spontaneously in the [place] presentation. The remainder of the body delivered without difficulty. There was a cord around the shoulder which was reduced. The was placed on mom's abdomen. Pitocin was given in the IV fluids. the cord stopped pulsing, the cord was double clamped and cut. Cord bloods were obtained. The placenta started to deliver and then the cord broke loose. Manual removal at 7:41 p.m.. There was increased bleeding and 800 mcg of Cytotec were placed rectally. Tranxenamic acid 1000 mg given. The fundus was massaged until bleeding stopped. Estimated blood loss 800 cc. No lacerations. . Epidural analgesia. Apgars 8 at 1 minute and 8 at 5 minutes. weight 7 lb 8 oz. Mom and stable to recovery. Baby 1: Infant gender: Female Presentation: vertex Position: Left Occiput Anterior Placenta delivery description: Manual Removal Cord Vessel Description: 3 Vessels, Clamped/Cut (after stopped pulsing) and Around Body x1 score (1 min): 8 score (5 min): 8 weight: 7 lb 8 oz Plan for aftercare: Routine care
[2021-05-27] MEDS: OXYTOCIN 10 UNIT/ML VIAL IM (22:40)
[2021-05-27] MEDS: IBUPROFEN 600 MG TABLET PO (23:35)
[2021-05-27] MEDS: ACETAMINOPHEN 325 MG TABLET 650 MG PO (23:36)
[2021-05-28] MEDS: LANOLIN OINT 7 GM 1 APPLIC TOP (04:42)
[2021-05-28] MEDS: IBUPROFEN 600 MG TABLET PO ×3 (05:05→16:27)
[2021-05-28] MEDS: ACETAMINOPHEN 325 MG TABLET 650 MG PO ×3 (05:06→16:26)
[2021-05-28] MEDS: HYDROCORTISONE 2.5% CREAM 30 GM 1 APPLIC TOP (07:47)
[2021-05-28] MEDS: DOCUSATE 100 MG CAPSULE PO (09:00)
[2021-05-28] MEDS: SERTRALINE 50 MG TABLET 25 MG PO (09:00)
[2021-05-28] MEDS: PRENATAL VIT,CALC/IRON/FOLIC 1 TABLET 1 TAB PO (09:00)
[2021-05-28] MEDS: LEVOTHYROXINE 100 MCG TABLET PO (09:10)
[2021-05-28] MEDS: LIOTHYRONINE 25 MCG TABLET PO (09:11)
== END 2021-05-28 18:30 | disposition home or self-care (01) | DRG 768 ==
PROVIDERS: Admitting Provider Obstetrics & Gynecology; PCP Family Medicine; Referring Provider Obstetrics & Gynecology; Visit Provider Obstetrics & Gynecology
DX: O69.89X0 Labor and delivery complicated by other cord complications, not applicable or unspecified (principal); Z37.0 Single live birth; O72.2 Delayed and secondary postpartum hemorrhage; Z3A.39 39 weeks gestation of pregnancy
CPT/HCPCS: 01967; 36415; 59050; 59200; 59400; 85014; 85018; 85025; 86850; 86900; 86901; 87635; C9803; G0379; J2405; J2590; S0191

== ENCOUNTER → 2021-07-13 09:36 | Outpatient (CLI) | payer OTHER, SELFPAY ==
[2021-07-13 11:18] LABS: Free T4, Direct Thyroxine 1.19 ng/dL (0.78-2.19)
[2021-07-13 11:31] LABS: Thyroid Stimulating Hormone 0.018 uIU/mL (0.47-4.68)
[2021-07-13 15:15] LABS: Free T3, Triiodothyronine Free 8.35 pg/mL (2.77-5.27)
== END ==
PROVIDERS: PCP Family Medicine; Referring Provider Obstetrics & Gynecology; Visit Provider Obstetrics & Gynecology
DX: E03.9 Hypothyroidism, unspecified (principal)
CPT/HCPCS: 36415; 84439; 84443; 84481

== ENCOUNTER 2022-05-06 16:00 | Outpatient (RCR) | payer OTHER, SELFPAY ==
--- NOTE | 2022-03-04 17:58 | PT.OIE ---
Current Diagnoses Tension-type headache, unspecified, not intractable (03/04/22) Stress incontinence (female) (male) (03/04/22) Unspecified dyspareunia (03/04/22) Strain of other muscles, fascia and tendons at shoulder and upper arm level, unspecified arm, initial encounter (03/04/22) Past Medical History (Last Updated 12/20/20 @ 22:29 by Marielle Goldsmith) Anxiety (~2009) Complete placenta previa nos or without hemorrhage, second trimester (~10/2020) Continuing after spontaneous of one fetus or more, first trimester, not applicable or unspecified (~12/10/20) History of hemorrhage Hypothyroid (~2015) Normal colonoscopy (~2004) (spontaneous vaginal delivery) (spontaneous vaginal delivery) Past Surgical History (Last Updated 12/10/20 @ 10:42 by Duane Garcia RN) [place] teeth removed (~2002) Visit Care Team Role Provider Type Julia Mishra MD Attending Provider Physician Family Provider Primary Care Provider Referring Provider Specialty: Family Practice Address: [address] [place] [address], [facility] Email: [email or web address] Physical Therapy Initial Evaluation PT-OP-A Visit Information Start: 03/04/22 10:39 Freq: Status: Active Protocol: Document 03/04/22 10:35 [facility] (Rec: 03/04/22 13:47 [facility] [id number]) Out-Patient Physical Therapy Visit Information Visit Information Visit Type Initial Evaluation Visit Start Time 10:40 Visit Stop Time 11:25 Total Visit Minutes 45 Visit Number 1 Evaluation Information Evaluation Date 03/04/22 PT-OP-B Current Condition Start: 03/04/22 10:39 Freq: Status: Active Protocol: Document 03/04/22 10:35 [facility] (Rec: 03/04/22 11:27 [facility] [id number]) Current Condition History of Current Condition Onset Date 9 months ago Current Complaints right sided neck and upper trapezius pain, urinary stress incontinence History of Current Condition Cynthia is a 36 year old female who is 10 months post with her 3rd child delivered may 27. Cynthia notes which each and delivery she has felt weaker and now feels weak in her pelvic floor leaking with running and strong cough or sneeze. She waited until this past fall to return to running. She was experiencing pain with intercourse, also has neck pain on her right side. The pelvic pain has gotten better, the neck pain comes and goes, she has incontinence. She leaks with jumping running longer distances, or working out hard on the bike. Wets through her underware. Wants to do 6-10 miles. At this point she will leak with more than 30 minutes. No tearing, she did have some hemmorage after her first one. She wakes up 1 time per night with her baby and then has to go to the bathroom before going back to sleep. She feels like she holds a lot of tension in her right upper trap. It will give her headaches that interfere with taking care of the kids. No leaking with lifting. Treatment Goals Patient/Caregiver Goals Cynthia feng like to reduce the pain in her neck and reduce her headaches. She would like to strengthen her pelvic floor and be able to increase her milage for a 1/2 marathon Current Functional Impairments (Reported) Functional Limitations- ADL's once pt begins getting a headache she notes she is unable to continue with her daily ADL's PT-OP-C Subjective Start: 03/04/22 10:39 Freq: Status: Active Protocol: Document 03/04/22 10:35 [facility] (Rec: 03/04/22 17:34 [facility] [id number]) OP-PT Pain Assessment Pain Assessment Grid Paper Pain Assessment Grid Completed Yes Location upper neck/suboccipitals Description Aching Description- Other pt notes pain will start in her right upper neck and spread into a headache PT-OP-F Manual Assessment Start: 03/04/22 13:42 Freq: Status: Active Protocol: Document 03/04/22 10:35 [facility] (Rec: 03/04/22 17:35 [facility] [id number]) Manual Assessments Soft Tissue Assessment Soft Tissue Mobility Assessment pec minor tightness right greater than left side pulling the shoulders forward upper trapezius tightness right greater than left suboccipital tightness and guarding right greater than left SCM and scalene tightness right greater than left Joint Mobility Assessment Joint Mobility Assessment C3-4 hyopmobile Thoracic spine hypomobility PT-OP-I Pelvic Floor Start: 03/04/22 13:42 Freq: Status: Active Protocol: Document 03/04/22 10:35 [facility] (Rec: 03/04/22 17:37 [facility] [id number]) Pelvic Floor Assessment Urine Pelvic Floor Surgery No Other Urinary Symptoms leakage with strong cough or sneeze or following running Leakage Size Medium Leakage Cause Cough,Exercise Nocturia 1-2 Urine Pad Type Panty Liner PT-OP-J Posture/Palpation/Skin Start: 03/04/22 13:42 Freq: Status: Active Protocol: Document 03/04/22 10:35 [facility] (Rec: 03/04/22 17:37 [facility] [id number]) Posture Evaluation Position Standing Evaluation View Lateral Head/C-Spine Posture Forward Head Shoulder Posture (L) Rounded,(R) Rounded,(L) Forward,(R) Forward Comments Posture Comments pt stands in a forward shoulder posture with forward head position Palpation Assessment Location right C3-4 Palpation Findings Muscle Guarding,Tenderness PT-OP-Q Treatments Start: 03/04/22 13:42 Freq: Status: Active Protocol: Document 03/04/22 10:35 [facility] (Rec: 03/04/22 13:47 [facility] [id number]) Therapeutic Exercises Supine Exercises supine thoracic mobilization foam roll horizontal Side bilateral Reps/Minutes 1-2 min supine neck mobilization with foam roll Side bilateral Reps/Minutes 1-2 min Comments backlying gently pressing head down and slowly rotating head side to side supine foam roll stretch Supine Exercise Name 1/2 foam roll vertical Side bilateral Comments varying arm positions to open up the anterior chest Sitting Exercises chin tuck Reps/Minutes 5-10 reps 2-3 times per day PT-OP-T Assessment and Plan Start: 03/04/22 10:39 Freq: Status: Active Protocol: Document 03/04/22 10:35 [facility] (Rec: 03/04/22 17:40 [facility] [id number]) Physical Therapy Assessment Rehab Potential Rehabilitation Potential Excellent Evaluation Complexity Number of Personal Factors/Comorbidities 0 Number of Body Systems Impaired 1-2 Clinical Presentation at Evaluation Stable Impairments Impairments Activity Tolerance,Functional Activities,Pain,Posture,Soft Tissue Mobility,Strength,Tone Goals 3 Impairment C3-4 hypomobility with pain to palpation on the right facet joint Assisted Goal (LTG) Cynthia presents with improved mobility of the R C3-4 facet joint and no longer c/o pain to palpation LTG Duration 12 weeks 2 Impairment pec minor tightness B with anteriorly rotated shoulders creating increased upper cervical extension and complaints of neck pain on the right side Short Term Goal (STG) Cynthia is educated in a HEP of stretches for her anterior chest to help decrease strain to the neck. STG Duration 4 weeks Assisted Goal (LTG) With manual therapy and postural exercises Cynthia notes a overall reduction in her neck pain LTG Duration 12 weeks 1 Impairment urinary leakage with strong cough or sneeze and leaking while running Group Therapist Goal (LTG) Cynthia reports a overall reduction in urinary leakage and feels overall stronger in her pelvic floor LTG Duration 12 weeks Assessment Summary Assessment Cynthia is a 36 year old female who presents to PT with chief complaints of both neck pain worse on the right side as well as pelvic floor weakness and urinary incontinence with running. She is 10 months with her third baby . She notes the neck pain is her chief complaint at this time as it will progress into a headache and then interferes with her daily activities of taking care of her kids. With evaluation today Cynthia is extremely tight in the pec min B but more so on her right side. She does have anteriorly rotated shoulers and slight upper neck extension in standing. She has tightness in the right SMC , scalenes, and upper trapezius. There is pain specifically at the right C 3- 4 facet. She was shown today how to stretch her anterior check with a foam roll and given exercises to lengthen the suboccipitals. Cynthia tolerated this well. Further evaluation for the pelvic floor will be done at her next visit. Cynthia is a good candidate for PT Physical Therapy Plan Frequency and Duration Frequency of Treatment 2x/Week Duration of treatment (weeks) 12 Plan of Care Start Date 03/04/22 Plan of Care End Date 05/27/22 Therapeutic Interventions Therapeutic Interventions Home Exercise Program,Joint Mobilizations,Manual Therapy, Neuromuscular Re-education, Patient/Caregiver Education, Self-Care/Home Management,Soft Tissue Mobilization, Therapeutic Exercises Modalities Biofeedback Next Visit Focus/Plan Next Note Type Treatment Note Next Visit Plan review postural exercises given today, cervical suboccipital release and manual cervical traction, Pelvic floor assessment for strength and tone of the pelvic floor. Begin EMG biofeedback for pelvic floor training.
--- NOTE | 2022-03-04 17:58 | PT.OPPOC ---
Physical, Occupational & Speech Therapy At [facility] Current Diagnoses Tension-type headache, unspecified, not intractable (03/04/22) Stress incontinence (female) (male) (03/04/22) Unspecified dyspareunia (03/04/22) Strain of other muscles, fascia and tendons at shoulder and upper arm level, unspecified arm, initial encounter (03/04/22) Visit Care Team Role Provider Type Julia Mishra MD Attending Provider Physician Family Provider Primary Care Provider Referring Provider Specialty: Family Practice Address: [address] [place] [address] [place], [place], [facility] Email: [email or web address] Plan Of Care PT-OP-T Assessment and Plan Start: 03/04/22 10:39 Freq: Status: Active Protocol: Document 03/04/22 10:35 [facility] (Rec: 03/04/22 17:40 [facility] [id number]) Physical Therapy Assessment Rehab Potential Rehabilitation Potential Excellent Evaluation Complexity Number of Personal Factors/Comorbidities 0 Number of Body Systems Impaired 1-2 Clinical Presentation at Evaluation Stable Impairments Impairments Activity Tolerance,Functional Activities,Pain,Posture,Soft Tissue Mobility,Strength,Tone Goals 3 Impairment C3-4 hypomobility with pain to palpation on the right facet joint Residential Goal (LTG) Cynthia presents with improved mobility of the R C3-4 facet joint and no longer c/o pain to palpation LTG Duration 12 weeks 2 Impairment pec minor tightness B with anteriorly rotated shoulders creating increased upper cervical extension and complaints of neck pain on the right side Short Term Goal (STG) Cynthia is educated in a HEP of stretches for her anterior chest to help decrease strain to the neck. STG Duration 4 weeks Lead Systems Developer Goal (LTG) With manual therapy and postural exercises Cynthia notes a overall reduction in her neck pain LTG Duration 12 weeks 1 Impairment urinary leakage with strong cough or sneeze and leaking while running Lead Systems Developer Goal (LTG) Cynthia reports a overall reduction in urinary leakage and feels overall stronger in her pelvic floor LTG Duration 12 weeks Assessment Summary Assessment Cynthia is a 36 year old female who presents to PT with chief complaints of both neck pain worse on the right side as well as pelvic floor weakness and urinary incontinence with running. She is 10 months with her third baby . She notes the neck pain is her chief complaint at this time as it will progress into a headache and then interferes with her daily activities of taking care of her kids. With evaluation today Cynthia is extremely tight in the pec min B but more so on her right side. She does have anteriorly rotated shoulders and slight upper neck extension in standing. She has tightness in the right SMC , scalenes, and upper trapezius. There is pain specifically at the right C 3- 4 facet. She was shown today how to stretch her anterior check with a foam roll and given exercises to lengthen the suboccipitals. Cynthia tolerated this well. Further evaluation for the pelvic floor will be done at her next visit. Cynthia is a good candidate for PT Physical Therapy Plan Frequency and Duration Frequency of Treatment 2x/Week Duration of treatment (weeks) 12 Plan of Care Start Date 03/04/22 Plan of Care End Date 05/27/22 Therapeutic Interventions Therapeutic Interventions Home Exercise Program,Joint Mobilizations,Manual Therapy, Neuromuscular Re-education, Patient/Caregiver Education, Self-Care/Home Management,Soft Tissue Mobilization, Therapeutic Exercises Modalities Biofeedback Next Visit Focus/Plan Next Note Type Treatment Note Next Visit Plan review postural exercises given today, cervical suboccipital release and manual cervical traction, Pelvic floor assessment for strength and tone of the pelvic floor. Begin EMG biofeedback for pelvic floor training. Plan of Care Dates Plan of Care Start Date 03/04/22 Plan of Care End Date 05/27/22 Electronically Signed by: Brissa Romeo, PT 03/04/22 4120 If you are in agreement with this Plan of Care, please return a signed and dated copy. I have reviewed this Plan of Care and certify that the skilled therapy services above are required to meet the patient?s needs. Physician Signature Date Printed Name and Credentials Clinical Instructor Signature Printed Name and Credentials
--- NOTE | 2022-03-09 16:40 | PT.OTN ---
Current Diagnoses Tension-type headache, unspecified, not intractable (03/09/22) Stress incontinence (female) (male) (03/09/22) Unspecified dyspareunia (03/09/22) Strain of other muscles, fascia and tendons at shoulder and upper arm level, unspecified arm, initial encounter (03/09/22) Physical Therapy Treatment Note PT-OP-A Visit Information Start: 03/04/22 10:39 Freq: Status: Active Protocol: Document 03/09/22 09:54 [facility] (Rec: 03/09/22 12:57 [facility] [id number]) Out-Patient Physical Therapy Visit Information Visit Information Visit Type Treatment Note Visit Start Time 09:55 Visit Stop Time 10:35 Total Visit Minutes 40 Visit Number 2 PT-OP-B Current Condition Start: 03/04/22 10:39 Freq: Status: Active Protocol: Document 03/04/22 10:35 [facility] (Rec: 03/04/22 11:27 [facility] [id number]) Current Condition History of Current Condition Onset Date 9 months ago Current Complaints right sided neck and upper trapezius pain, urinary stress incontinence History of Current Condition Cynthia is a 36 year old female who is 10 months post with her 3rd child delivered may 27. Cynthia notes which each and delivery she has felt weaker and now feels weak in her pelvic floor leaking with running and strong cough or sneeze. She waited until this past fall to return to running. She was experiencing pain with intercourse, also has neck pain on her right side. The pelvic pain has gotten better, the neck pain comes and goes, she has incontinence. She leaks with jumping running longer distances, or working out hard on the bike. Wets through her underware. Wants to do 6-10 miles. At this point she will leak with more than 30 minutes. No tearing, she did have some hemmorage after her first one. She wakes up 1 time per night with her baby and then has to go to the bathroom before going back to sleep. She feels like she holds a lot of tension in her right upper trap. It will give her headaches that interfere with taking care of the kids. No leaking with lifting. Treatment Goals Patient/Caregiver Goals Cynthia wourl like to reduce the pain in her neck and reduce her headaches. She would like to strengthen her pelvic floor and be able to increase her milage for a 1/2 marathon Current Functional Impairments (Reported) Functional Limitations- ADL's once pt begins getting a headache she notes she is unable to continue with her daily ADL's PT-OP-C Subjective Start: 03/04/22 10:39 Freq: Status: Active Protocol: Document 03/09/22 09:54 [facility] (Rec: 03/09/22 12:57 [facility] [id number]) OP-PT Subjective Patient Comments Patient Comments pt notes she has been working on stretching and she has noticed more neck popping afterwards and did have a headache. 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 and she has been under a lot of stress PT-OP-F Manual Assessment Start: 03/04/22 13:42 Freq: Status: Active Protocol: Document 03/04/22 10:35 [facility] (Rec: 03/04/22 17:35 [facility] [id number]) Manual Assessments Soft Tissue Assessment Soft Tissue Mobility Assessment pec minor tightness right greater than left side pulling the shoulders forward upper trapezius tightness right greater than left suboccipital tightness and guarding right greater than left SCM and scalene tightness right greater than left Joint Mobility Assessment Joint Mobility Assessment C3-4 hyopmobile Thoracic spine hypomobility PT-OP-I Pelvic Floor Start: 03/04/22 13:42 Freq: Status: Active Protocol: Document 03/04/22 10:35 [facility] (Rec: 03/04/22 17:37 [facility] [id number]) Pelvic Floor Assessment Urine Pelvic Floor Surgery No Other Urinary Symptoms leakage with strong cough or sneeze or following running Leakage Size Medium Leakage Cause Cough,Exercise Nocturia 1-2 Urine Pad Type Panty Liner PT-OP-J Posture/Palpation/Skin Start: 03/04/22 13:42 Freq: Status: Active Protocol: Document 03/04/22 10:35 [facility] (Rec: 03/04/22 17:37 [facility] [id number]) Posture Evaluation Position Standing Evaluation View Lateral Head/C-Spine Posture Forward Head Shoulder Posture (L) Rounded,(R) Rounded,(L) Forward,(R) Forward Comments Posture Comments pt stands in a forward shoulder posture with forward head position Palpation Assessment Location right C3-4 Palpation Findings Muscle Guarding,Tenderness PT-OP-Q Treatments Start: 03/04/22 13:42 Freq: Status: Active Protocol: Document 03/09/22 09:54 [facility] (Rec: 03/09/22 16:38 [facility] [id number]) Therapeutic Exercises Supine Exercises scalene stretch Reps/Minutes hold 30 sec- 1 min Comments middle and posterior scalene stretch Sitting Exercises sitting levator scapula stretch Reps/Minutes hold 30 sec - 1 min Standing Exercises rows Reps/Minutes level 2 theraband 2x 10 Comments HEP Manual Therapy Treatment Soft Tissue Mobilization upper trapezius, scalenes, and levator scapula Mobilization Type Myofascial Release Intensity/Depth Moderate Body Position Supine Comments worked in both sidelying and supine Manual Techniques manual scalene stretches Comments middle and posterior scalene stretches. sidelying scapular mobilization Comments pt was in left sidelying and I worked on right sided scapula mobility and pec minor stretching PT-OP-R Modalities Start: 03/09/22 16:29 Freq: Status: Active Protocol: Document 03/09/22 09:54 [facility] (Rec: 03/09/22 16:38 [facility] [id number]) Ultrasound Therapy Treatment right upper trapezius Treatment Duration (minutes) 8 Patient Position Sidelying Coupling Medium Ultrasound Gel Applicator Size (cm2) 5 Mode Setting Continuous Duty Cycle 100% Intensity Setting (w/cm2) 1.5 PT-OP-T Assessment and Plan Start: 03/04/22 10:39 Freq: Status: Active Protocol: Document 03/09/22 09:54 [facility] (Rec: 03/09/22 16:38 [facility] [id number]) Physical Therapy Assessment Assessment Summary Assessment Pt is guarded and tight in the right SCM, scalenes, upper trap and levator scapula. She is moving a bit better today into axial flexion. I did do a trial of ultrasound to prepare her tissue prior to MFR work and ice at the end to help with inflammation. Will do pelvic floor assessment next visit as pt was still on her menstrual cycle Physical Therapy Plan Frequency and Duration Frequency of Treatment 2x/Week Duration of treatment (weeks) 12 Plan of Care Start Date 03/04/22 Plan of Care End Date 05/27/22 Next Visit Focus/Plan Next Note Type Treatment Note Next Visit Plan Begin EMG biofeedback next visit and pelvic floor assessment
--- NOTE | 2022-03-16 12:30 | PT.OTN ---
Current Diagnoses Tension-type headache, unspecified, not intractable (03/16/22) Stress incontinence (female) (male) (03/16/22) Unspecified dyspareunia (03/16/22) Strain of other muscles, fascia and tendons at shoulder and upper arm level, unspecified arm, initial encounter (03/16/22) Physical Therapy Treatment Note PT-OP-A Visit Information Start: 03/04/22 10:39 Freq: Status: Active Protocol: Document 03/16/22 09:47 [facility] (Rec: 03/16/22 09:56 [facility] [id number]) Out-Patient Physical Therapy Visit Information Visit Information Visit Type Treatment Note Visit Start Time 09:47 Visit Stop Time 10:30 Total Visit Minutes 43 Visit Number 3 PT-OP-B Current Condition Start: 03/04/22 10:39 Freq: Status: Active Protocol: Document 03/04/22 10:35 [facility] (Rec: 03/04/22 11:27 [facility] [id number]) Current Condition History of Current Condition Onset Date 9 months ago Current Complaints right sided neck and upper trapezius pain, urinary stress incontinence History of Current Condition Cynthia is a 36 year old female who is 10 months post with her 3rd child delivered may 27. Cynthia notes which each and delivery she has felt weaker and now feels weak in her pelvic floor leaking with running and strong cough or sneeze. She waited until this past fall to return to running. She was experiencing pain with intercourse, also has neck pain on her right side. The pelvic pain has gotten better, the neck pain comes and goes, she has incontinence. She leaks with jumping running longer distances, or working out hard on the bike. Wets through her underware. Wants to do 6-10 miles. At this point she will leak with more than 30 minutes. No tearing, she did have some hemmorage after her first one. She wakes up 1 time per night with her baby and then has to go to the bathroom before going back to sleep. She feels like she holds a lot of tension in her right upper trap. It will give her headaches that interfere with taking care of the kids. No leaking with lifting. Treatment Goals Patient/Caregiver Goals Cynthia wourl like to reduce the pain in her neck and reduce her headaches. She would like to strengthen her pelvic floor and be able to increase her milage for a 1/2 marathon Current Functional Impairments (Reported) Functional Limitations- ADL's once pt begins getting a headache she notes she is unable to continue with her daily ADL's PT-OP-C Subjective Start: 03/04/22 10:39 Freq: Status: Active Protocol: Document 03/16/22 09:47 [facility] (Rec: 03/16/22 09:56 [facility] [id number]) OP-PT Subjective Patient Comments Patient Comments pt notes she fels a little looser in her neck, she has felt a lot of popping too and this will lead to a headache. She has been icing as well as using IBU PT-OP-F Manual Assessment Start: 03/04/22 13:42 Freq: Status: Active Protocol: Document 03/04/22 10:35 [facility] (Rec: 03/04/22 17:35 [facility] [id number]) Manual Assessments Soft Tissue Assessment Soft Tissue Mobility Assessment pec minor tightness right greater than left side pulling the shoulders forward upper trapezius tightness right greater than left suboccipital tightness and guarding right greater than left SCM and scalene tightness right greater than left Joint Mobility Assessment Joint Mobility Assessment C3-4 hyopmobile Thoracic spine hypomobility PT-OP-I Pelvic Floor Start: 03/04/22 13:42 Freq: Status: Active Protocol: Document 03/16/22 09:56 [facility] (Rec: 03/16/22 10:27 [facility] [id number]) Pelvic Floor Assessment Pelvic Clock Pelvic Clock 3-6 Guarding Pelvic Clock 6-9 Guarding Contraction Ability Voluntary Contraction Weak Voluntary Relaxation Weak Manual Muscle Testing Right 2 Manual Muscle Testing Anterior 1 Manual Muscle Testing Posterior 2 Comments Pelvic Floor Comments 11.8 max 20.0 PT-OP-J Posture/Palpation/Skin Start: 03/04/22 13:42 Freq: Status: Active Protocol: Document 03/04/22 10:35 [facility] (Rec: 03/04/22 17:37 [facility] [id number]) Posture Evaluation Position Standing Evaluation View Lateral Head/C-Spine Posture Forward Head Shoulder Posture (L) Rounded,(R) Rounded,(L) Forward,(R) Forward Comments Posture Comments pt stands in a forward shoulder posture with forward head position Palpation Assessment Location right C3-4 Palpation Findings Muscle Guarding,Tenderness PT-OP-Q Treatments Start: 03/04/22 13:42 Freq: Status: Active Protocol: Document 03/16/22 09:47 [facility] (Rec: 03/16/22 12:29 [facility] [id number]) Therapeutic Exercises Supine Exercises supine ball squeeze with pelvic floor Reps/Minutes x 10 reps pelvic floor quick flicks Reps/Minutes 10 reps 2 sec on 2 sec off pelvic floor long holds Reps/Minutes x 10 reps 10 sec on 10 sec off Manual Therapy Treatment Manual Techniques manual pelvic floor assessment Body Position Hooklying Comments manual assessment of the levator ani: anterior pelvic floor weakness, pt able to contract all other parts of the levator ani however the anterior section she has decreased awareness and decreased ability to sustain a contraction. Decreased endurance holds of the levator ani. PT-OP-R Modalities Start: 03/09/22 16:29 Freq: Status: Active Protocol: Document 03/09/22 09:54 [facility] (Rec: 03/09/22 16:38 [facility] [id number]) Ultrasound Therapy Treatment right upper trapezius Treatment Duration (minutes) 8 Patient Position Sidelying Coupling Medium Ultrasound Gel Applicator Size (cm2) 5 Mode Setting Continuous Duty Cycle 100% Intensity Setting (w/cm2) 1.5 PT-OP-T Assessment and Plan Start: 03/04/22 10:39 Freq: Status: Active Protocol: Document 03/16/22 09:47 [facility] (Rec: 03/16/22 12:29 [facility] [id number]) Physical Therapy Assessment Assessment Summary Assessment With pelvic floor assessment today Cynthia is weak primarily in her anterior pelvic floor. There is some pelvic floor tightness on the left side but with EMG biofeedback she did well with pelvic floor relaxation. It is difficult to sustain a pelvic floor contraction for 10 seconds. EMG biofeedback was intitated today and she tolerated this well. She would benefit from endurance training for her pelvic floor. Physical Therapy Plan Frequency and Duration Frequency of Treatment 2x/Week Duration of treatment (weeks) 12 Plan of Care Start Date 03/04/22 Plan of Care End Date 05/27/22 Therapeutic Interventions Therapeutic Interventions Home Exercise Program,Joint Mobilizations,Manual Therapy, Neuromuscular Re-education, Patient/Caregiver Education, Self-Care/Home Management,Soft Tissue Mobilization, Therapeutic Exercises Modalities Biofeedback Next Visit Focus/Plan Next Note Type Treatment Note Next Visit Plan continue with EMG biofeedback, recheck in with postural modifications and anterior chest stretching
--- NOTE | 2022-05-06 16:57 | PT.OTN ---
Current Diagnoses Tension-type headache, unspecified, not intractable (05/06/22) Stress incontinence (female) (male) (05/06/22) Unspecified dyspareunia (05/06/22) Strain of other muscles, fascia and tendons at shoulder and upper arm level, unspecified arm, initial encounter (05/06/22) Physical Therapy Treatment Note PT-OP-A Visit Information Start: 03/04/22 10:39 Freq: Status: Active Protocol: Document 05/06/22 16:13 [facility] (Rec: 05/06/22 16:37 [facility] [id number]) Out-Patient Physical Therapy Visit Information Visit Information Visit Type Treatment Note Visit Start Time 16:15 Visit Stop Time 17:00 Total Visit Minutes 45 Visit Number 4 PT-OP-B Current Condition Start: 03/04/22 10:39 Freq: Status: Active Protocol: Document 03/04/22 10:35 [facility] (Rec: 03/04/22 11:27 [facility] [id number]) Current Condition History of Current Condition Onset Date 9 months ago Current Complaints right sided neck and upper trapezius pain, urinary stress incontinence History of Current Condition Cynthia is a 36 year old female who is 10 months post with her 3rd child delivered may 27. Cynthia notes which each and delivery she has felt weaker and now feels weak in her pelvic floor leaking with running and strong cough or sneeze. She waited until this past fall to return to running. She was experiencing pain with intercourse, also has neck pain on her right side. The pelvic pain has gotten better, the neck pain comes and goes, she has incontinence. She leaks with jumping running longer distances, or working out hard on the bike. Wets through her underware. Wants to do 6-10 miles. At this point she will leak with more than 30 minutes. No tearing, she did have some hemmorage after her first one. She wakes up 1 time per night with her baby and then has to go to the bathroom before going back to sleep. She feels like she holds a lot of tension in her right upper trap. It will give her headaches that interfere with taking care of the kids. No leaking with lifting. Treatment Goals Patient/Caregiver Goals Cynthia wourl like to reduce the pain in her neck and reduce her headaches. She would like to strengthen her pelvic floor and be able to increase her milage for a 1/2 marathon Current Functional Impairments (Reported) Functional Limitations- ADL's once pt begins getting a headache she notes she is unable to continue with her daily ADL's PT-OP-C Subjective Start: 03/04/22 10:39 Freq: Status: Active Protocol: Document 05/06/22 16:13 [facility] (Rec: 05/06/22 16:37 [facility] [id number]) OP-PT Subjective Patient Comments Patient Comments pt notes she has been running more once she hits three miles she starts run a little faster and she notices leakage after that. She notes she hasn't had any headaches the foam roll and stretches have helped. Cynthia requests this to be her last visit in PT as now her is deployed and it is too difficult to make appointments . Patient Reported Progress Improving PT-OP-F Manual Assessment Start: 03/04/22 13:42 Freq: Status: Active Protocol: Document 03/04/22 10:35 [facility] (Rec: 03/04/22 17:35 [facility] [id number]) Manual Assessments Soft Tissue Assessment Soft Tissue Mobility Assessment pec minor tightness right greater than left side pulling the shoulders forward upper trapezius tightness right greater than left suboccipital tightness and guarding right greater than left SCM and scalene tightness right greater than left Joint Mobility Assessment Joint Mobility Assessment C3-4 hyopmobile Thoracic spine hypomobility PT-OP-I Pelvic Floor Start: 03/04/22 13:42 Freq: Status: Active Protocol: Document 03/16/22 09:56 [facility] (Rec: 03/16/22 10:27 [facility] [id number]) Pelvic Floor Assessment Urine Other Urinary Symptoms pt notes she will leak 1-2 TBS after running 3 miles now Leakage Size Small Nocturia 1 Pelvic Clock Pelvic Clock 3-6 Guarding Pelvic Clock 6-9 Guarding Comments Pelvic Floor Comments 11.8 max 20.0 PT-OP-J Posture/Palpation/Skin Start: 03/04/22 13:42 Freq: Status: Active Protocol: Document 03/04/22 10:35 [facility] (Rec: 03/04/22 17:37 [facility] [id number]) Posture Evaluation Position Standing Evaluation View Lateral Head/C-Spine Posture Forward Head Shoulder Posture (L) Rounded,(R) Rounded,(L) Forward,(R) Forward Comments Posture Comments pt stands in a forward shoulder posture with forward head position Palpation Assessment Location right C3-4 Palpation Findings Muscle Guarding,Tenderness PT-OP-Q Treatments Start: 03/04/22 13:42 Freq: Status: Active Protocol: Document 05/06/22 16:55 [facility] (Rec: 05/06/22 16:57 [facility] [id number]) Therapeutic Exercises Supine Exercises modified squat stretch Reps/Minutes hold 1-2 min piriformis stretch Reps/Minutes hold 1-2 min happy baby stretch Reps/Minutes hold 1-2 min Other Exercises sidelying hip circles Reps/Minutes 10 reps each direction sidelying clam shells Reps/Minutes 2 x 10 reps Self-Care/Home Management Treatment Education Patient Education Home Exercise Program Other Education pelvic floor progression to upright positions and pt given HEP for relaxed awarenss of the pelvic floor as well as hip ER strengthening PT-OP-R Modalities Start: 03/09/22 16:29 Freq: Status: Active Protocol: Document 03/09/22 09:54 [facility] (Rec: 03/09/22 16:38 [facility] [id number]) Ultrasound Therapy Treatment right upper trapezius Treatment Duration (minutes) 8 Patient Position Sidelying Coupling Medium Ultrasound Gel Applicator Size (cm2) 5 Mode Setting Continuous Duty Cycle 100% Intensity Setting (w/cm2) 1.5 PT-OP-T Assessment and Plan Start: 03/04/22 10:39 Freq: Status: Active Protocol: Document 05/06/22 16:13 [facility] (Rec: 05/06/22 16:37 [facility] [id number]) Physical Therapy Assessment Assessment Summary Assessment Cynthia returns to PT after not being seen since Mar 16. She reports headaches are gone for the most part now and she has been able to run. She is noting some leaking at 3 miles when she relaxes her pelvic floor. I added on hip rotator exercises for her today and we talked about fully relaxing her pelvic floor with voiding. She was given a few hip stretches to help with full pelvic floor relaxation. At this point she feels comfortable with a HEP. She will be discharged at this time. Physical Therapy Plan Frequency and Duration Frequency of Treatment 2x/Week Duration of treatment (weeks) 12 Plan of Care Start Date 03/04/22 Plan of Care End Date 05/27/22 Discharge Physical Therapy Discharge Reasons Patient Request Discharge Comments Pt has made great gains overall, her headaches are gone for the most part and she has been able to return to running. She will be discharged at this time
--- NOTE | 2022-05-06 17:00 | PT.OPDS ---
Current Diagnoses Tension-type headache, unspecified, not intractable (05/06/22) Stress incontinence (female) (male) (05/06/22) Unspecified dyspareunia (05/06/22) Strain of other muscles, fascia and tendons at shoulder and upper arm level, unspecified arm, initial encounter (05/06/22) Visit Care Team Role Provider Type Julia Mishra MD Attending Provider Physician Family Provider Primary Care Provider Referring Provider Specialty: Family Practice Address: [address] [place] [address], [place], [facility] Email: [email or web address] Visit Number Visit Number 4 Discharge Summary PT-OP-B Current Condition Start: 03/04/22 10:39 Freq: Status: Active Protocol: Document 03/04/22 10:35 [facility] (Rec: 03/04/22 11:27 [facility] [id number]) Current Condition History of Current Condition Onset Date 9 months ago Current Complaints right sided neck and upper trapezius pain, urinary stress incontinence History of Current Condition Cynthia is a 36 year old female who is 10 months post with her 3rd child delivered may 27. Cynthia notes which each and delivery she has felt weaker and now feels weak in her pelvic floor leaking with running and strong cough or sneeze. She waited until this past fall to return to running. She was experiencing pain with intercourse, also has neck pain on her right side. The pelvic pain has gotten better, the neck pain comes and goes, she has incontinence. She leaks with jumping running longer distances, or working out hard on the bike. Wets through her underware. Wants to do 6-10 miles. At this point she will leak with more than 30 minutes. No tearing, she did have some hemmorage after her first one. She wakes up 1 time per night with her baby and then has to go to the bathroom before going back to sleep. She feels like she holds a lot of tension in her right upper trap. It will give her headaches that interfere with taking care of the kids. No leaking with lifting. Treatment Goals Patient/Caregiver Goals Cynthia wourl like to reduce the pain in her neck and reduce her headaches. She would like to strengthen her pelvic floor and be able to increase her milage for a 1/2 marathon Current Functional Impairments (Reported) Functional Limitations- ADL's once pt begins getting a headache she notes she is unable to continue with her daily ADL's PT-OP-C Subjective Start: 03/04/22 10:39 Freq: Status: Active Protocol: Document 05/06/22 16:13 [facility] (Rec: 05/06/22 16:37 [facility] [id number]) OP-PT Subjective Patient Comments Patient Comments pt notes she has been running more once she hits three miles she starts run a little faster and she notices leakage after that. She notes she hasn't had any headaches the foam roll and stretches have helped. Cynthia requests this to be her last visit in PT as now her is deployed and it is too difficult to make appointments . Patient Reported Progress Improving PT-OP-F Manual Assessment Start: 03/04/22 13:42 Freq: Status: Active Protocol: Document 03/04/22 10:35 [facility] (Rec: 03/04/22 17:35 [facility] [id number]) Manual Assessments Soft Tissue Assessment Soft Tissue Mobility Assessment pec minor tightness right greater than left side pulling the shoulders forward upper trapezius tightness right greater than left suboccipital tightness and guarding right greater than left SCM and scalene tightness right greater than left Joint Mobility Assessment Joint Mobility Assessment C3-4 hyopmobile Thoracic spine hypomobility PT-OP-I Pelvic Floor Start: 03/04/22 13:42 Freq: Status: Active Protocol: Document 03/16/22 09:56 [facility] (Rec: 03/16/22 10:27 [facility] [id number]) Pelvic Floor Assessment Urine Other Urinary Symptoms pt notes she will leak 1-2 TBS after running 3 miles now Leakage Size Small Nocturia 1 Pelvic Clock Pelvic Clock 3-6 Guarding Pelvic Clock 6-9 Guarding Comments Pelvic Floor Comments 11.8 max 20.0 PT-OP-J Posture/Palpation/Skin Start: 03/04/22 13:42 Freq: Status: Active Protocol: Document 03/04/22 10:35 [facility] (Rec: 03/04/22 17:37 [facility] [id number]) Posture Evaluation Position Standing Evaluation View Lateral Head/C-Spine Posture Forward Head Shoulder Posture (L) Rounded,(R) Rounded,(L) Forward,(R) Forward Comments Posture Comments pt stands in a forward shoulder posture with forward head position Palpation Assessment Location right C3-4 Palpation Findings Muscle Guarding,Tenderness PT-OP-T Assessment and Plan Start: 03/04/22 10:39 Freq: Status: Active Protocol: Document 05/06/22 16:13 [facility] (Rec: 05/06/22 16:37 [facility] [id number]) Physical Therapy Assessment Goals 3 Impairment C3-4 hypomobility with pain to palpation on the right facet joint Care Home Goal (LTG) Cynthia presents with improved mobility of the R C3-4 facet joint and no longer c/o pain to palpation LTG Duration 12 weeks 2 Impairment pec minor tightness B with anteriorly rotated shoulders creating increased upper cervical extension and complaints of neck pain on the right side Short Term Goal (STG) Cynthia is educated in a HEP of stretches for her anterior chest to help decrease strain to the neck. GOAL MET STG Duration 4 weeks Care Home Goal (LTG) With manual therapy and postural exercises Cynthia notes a overall reduction in her neck pain Goal met LTG Duration 12 weeks 1 Impairment urinary leakage with strong cough or sneeze and leaking while running Care Home Goal (LTG) Cynthia reports a overall reduction in urinary leakage and feels overall stronger in her pelvic floor Good progress LTG Duration 12 weeks Assessment Summary Assessment Cynthia returns to PT after not being seen since Mar 16. She reports headaches are gone for the most part now and she has been able to run. She is noting some leaking at 3 miles when she relaxes her pelvic floor. I added on hip rotator exercises for her today and we talked about fully relaxing her pelvic floor with voiding. She was given a few hip stretches to help with full pelvic floor relaxation. At this point she feels comfortable with a HEP. She will be discharged at this time. Physical Therapy Plan Frequency and Duration Frequency of Treatment 2x/Week Duration of treatment (weeks) 12 Plan of Care Start Date 03/04/22 Plan of Care End Date 05/27/22 Discharge Physical Therapy Discharge Reasons Patient Request Discharge Comments Pt has made great gains overall, her headaches are gone for the most part and she has been able to return to running. She will be discharged at this time
== END 2022-06-24 10:28 | disposition home or self-care (01) ==
LOC: PHYS 16:00
PROVIDERS: Family Provider Family Medicine; PCP Family Medicine; Referring Provider Family Medicine; Visit Provider Family Medicine
DX: S46.819A Strain of other muscles, fascia and tendons at shoulder and upper arm level, unspecified arm, initial encounter (principal); N94.10 Unspecified dyspareunia; G44.209 Tension-type headache, unspecified, not intractable; N39.3 Stress incontinence (female) (male)
CPT/HCPCS: 97035; 97110; 97140; 97161; 97535

== ENCOUNTER → 2024-10-01 18:46 | Outpatient (CLI) | payer OTHER, SELFPAY ==
--- NOTE | 2024-10-01 18:48 | DI.MRI.S_ITS ---
PROCEDURE: MR ABDOMEN PELVIS WO CON COMPARISON: None. TECHNIQUE: Multiphasic, multi sequence MRI of the abdomen and pelvis, without intravenous contrast. INDICATIONS: Evaluate RT inguinal cyst; ?femoral hernia FINDINGS: Lung bases and heart are unremarkable. Benign punctate hepatic cysts. No significant steatosis. No gallstones or wall thickening. Normal spleen. Normal size of the kidneys, without hydronephrosis or mass. No pancreatic ductal dilation. No adrenal nodules. Large colonic stool load. There is loculated fluid within the right canal of Nuck, measuring approximately 2.5 x 2.2 centimeter. IMPRESSION: Right inguinal hernia within the right canal of Nuck. This contains loculated fluid measuring 2.5 x 2.2 centimeter. This fluid is probably a sequela of entrapped fluid physiologic free fluid versus a sequela of fat infarct. Dictated by: Trip Leach M.D. on 10/02/2024 at 11:50 Approved by: Trip Leach M.D. on 10/02/2024 at 11:53
== END ==
LOC: MRI 18:47
PROVIDERS: Family Provider Family Medicine; PCP Family Medicine; Referring Provider Surgery; Visit Provider Surgery
DX: R19.09 Other intra-abdominal and pelvic swelling, mass and lump (principal); K40.90 Unilateral inguinal hernia, without obstruction or gangrene, not specified as recurrent; K76.89 Other specified diseases of liver
CPT/HCPCS: 72195; 74181